=== PATIENT | male | born 1975 | race Caucasian/White ===

== ENCOUNTER 2016-06-18 07:43 | Inpatient (IN) ==
[2016-06-18] MEDS ORDERED: ASPIRIN PO STA (08:02)
[2016-06-18] MEDS ORDERED: CARDIZEM 100 MG/NS 100 MG/100 ML IVPB IV SCH (08:07)
[2016-06-18] MEDS ORDERED: CARDIZEM IV ONE ×2 (08:07→08:55)
[2016-06-18] MEDS ORDERED: CARDIZEM ONE (08:09)
[2016-06-18 08:13] LABS: MANUAL DIFF NEEDED? NO
[2016-06-18 08:14] LABS: BASO% 0.5 % (0.0-0.8); EOS# 0.06 X1000 (0.0-0.7); EOS% 0.6 % (0.0-10.0); HEMATOCRIT 41.7 % (42.0-52.0); HEMOGLOBIN 13.7 g/dL (14.0-18.0); IMM GRAN# 0.02 X1000 (0.0-0.04); IMM GRAN% 0.2 % (0.0-0.5); LYMPH# 1.99 X1000 (1.2-3.4); LYMPH% 21.1 % (20.5-51.1); MCH 31.1 PG (27-31); MCHC 32.9 g/dL (33-37); MCV 94.6 FL (81-99); MONO# 0.97 X1000 (0.11-0.59); MONO% 10.3 % (1.7-9.3); MPV 11.3 FL (7.4-10.4); NEUT% 67.3 % (42.2-75.2); PLT 154 X1000 (130-400); RBC 4.41 XMIL (4.7-6.1)
[2016-06-18] MEDS ORDERED: NS 1,000 ML ONE (08:24)
[2016-06-18] MEDS ORDERED: LASIX IV ONE ×2 (08:27→17:21)
[2016-06-18 08:40] LABS: AGAP 12; ALKALINE PHOSPHATASE 56 U/L (32-122); BUN 16 mg/dL (8-22); CALCIUM 8.7 mg/dL (8.8-10.2); CHLORIDE 99 mmol/L (98-107); COSMO 269; GOT 54 U/L (10-34); GPT 74 U/L (10-44); MAGNESIUM 2.2 mg/dL (1.5-2.7); SODIUM 134 mmol/L (136-145); TCO2 23 mmol/L (25-35)
[2016-06-18 08:44] LABS: CK PROFILE 206 U/L (24-204)
--- NOTE | 2016-06-18 08:46 | Diag Imaging Result Document ---
PROCEDURE NAME: CHEST-PORTABLE - 06/18/2016 PORTABLE CHEST: COMPARISON: 09/01/2015. FINDINGS: The lungs are well expanded. There are increased interstitial markings bilaterally consistent with pulmonary edema. The heart is mildly prominent. No pleural effusions identified. No consolidation. IMPRESSION: Pulmonary edema with a mildly prominent heart.
--- NOTE | 2016-06-18 08:59 | EKG Report ---
Test Performed on : 06/18/2016 07:58:49 AM Test Reason : CHEST PAIN Blood Pressure : / mmHG Vent. Rate : 162 BPM Atrial Rate : 182 BPM P-R Int : 000 ms QRS Dur : 080 ms QT Int : 314 ms P-R-T Axes : 000 086 076 degrees QTc Int : 515 ms Atrial fibrillation. with rapid ventricular response. with premature ventricular or aberrantly condu cted complexes. Abnormal ECG When compared with ECG of 12-SEP-2012 07:56, Vent. rate has increased BY 99 BPM QRS axis shifted right ST no longer depressed in Anterolateral leads T wave inversion no longer evident in Anterolateral leads Unconfirmed Result
[2016-06-18 09:02] LABS: BE 1.6 mmoll (-3.0-3.0); BLOOD TYPE ARTERIAL; DRAW SITE R RADIAL; O2(CT) 18.1 mL/dL (15.0-23.0); PCO2(98.6) 39 mmHg (35-45); PO2(98.6) 69 mmHg (60-100); SAMPLE BLOOD; pH(98.6) 7.43 (7.35-7.45)
[2016-06-18 09:04] LABS: ALLEN TEST YES; MODALITY CANNULA
[2016-06-18 09:11] LABS: INR 1.05 (0.86-1.15)
[2016-06-18 09:12] LABS: PTT PL 29.5 Seconds (22.6-43.9)
[2016-06-18] MEDS ORDERED: NARCAN IV ONE (09:41)
[2016-06-18] MEDS ORDERED: NARCAN ONE (09:42)
[2016-06-18 09:59] LABS: BE 1.2 mmoll (-3.0-3.0); BLOOD TYPE ARTERIAL; DRAW SITE R BRACHIAL; METHB 1.4 % (0.0-1.5); O2(CT) 18.5 mL/dL (15.0-23.0); PCO2(98.6) 41 mmHg (35-45); PO2(98.6) 75 mmHg (60-100); SAMPLE BLOOD; SAO2 96.8 % (95.0-100.0); THB 14.2 g/dL (11.5-17.4); pH(98.6) 7.41 (7.35-7.45)
[2016-06-18 10:01] LABS: MODALITY BI PAP
[2016-06-18 10:02] LABS: ALLEN TEST NO
[2016-06-18 10:20] LABS: UR AMPHETAMINES QUAL NONE DETECTED (NONE DETECT); UR BARBITUATES QUAL NONE DETECTED (NONE DETECT); UR BENZODIAZEPIN QUAL NONE DETECTED (NONE DETECT); UR CANNABINOIDS QUAL NONE DETECTED (NONE DETECT); UR COCAINE QUAL NONE DETECTED (NONE DETECT); UR MDMA QUAL NONE DETECTED (NONE DETECT); UR METHADONE QUAL NONE DETECTED (NONE DETECT); UR METHAMPHETAMINE QUAL NONE DETECTED (NONE DETECT); UR OPIATES QUAL NONE DETECTED (NONE DETECT); UR OXYCODONE QUAL NONE DETECTED (NONE DETECT); UR PCP QUAL NONE DETECTED (NONE DETECT); UR TCA QUAL NONE DETECTED (NONE DETECT)
--- NOTE | 2016-06-18 10:30 | ED EKG INTERP ---
This chart was entered by Luis M Lemons Scribe, acting as scribe for Madai Amaya MD. EKG Interpretation - EKG Time of EKG reading by physician:: 08:00 EKG Read and Signed by:: Madai Amaya EKG Interpretation (*Must complete 3 of following elements*): Abnormal Rate: 162 Rhythm: atrial fibrillation with rapid ventricular response Delton: normal ST Wave: normal This chart was documented by the indicated scribe, (Luis M Lemons Scribe) and accurately reflects the services I performed and decisions made by Monique joshua Tom-Meka M., MD, as attested by the provider's signature.
--- NOTE | 2016-06-18 10:32 | PROVIDER DOCUMENTATION ---
This chart was entered by Luis M Lemons Scribe, acting as scribe for Madai Amaya MD. HPI-Critical Care - General Chief Complaint: Shortness of Breath Stated Complaint: SOB Time Seen by Provider: 06/18/16 08:02 Patient arrived via EMS?: No Source: patient Allergies/Adverse Reactions: Allergies Allergy/AdvReac Type Severity Reaction Status Date / Time Iodinated Contrast Media - Allergy Unknown Unknown Verified 06/18/16 08:03 Oral and Home Medications: Home Medication List Medication Instructions Recorded Confirmed Last Taken Type Valsartan 320 mg PO DAILY 01/16/15 01/16/15 01/16/15 History Aspirin 81 mg PO DAILY #50 chewtab 01/17/15 Unknown Rx Metoprolol Succinate E.r. [Toprol 25 mg PO DAILY #30 tablet 01/17/15 Unknown Rx Xl] Pantoprazole [Protonix] 40 mg PO DAILY@0700 #30 tablet 01/17/15 Unknown Rx - History of Present Illness-Critical Care Nature of Presenting Problem: 40 y/o M presents to the ED c/o shortness of breath. onset x3 days. some heart racing sensation. denies chest pain. patient has had cardiac stents placed in the past. patient has not been taking his daily medications as he should. daily smoker. mild/moderate distress on arrival. denies all other symptoms. no other voiced complaints. Location of Pain/Injury: reports: none Quality of Pain: reports: none Severity in ED: reports: moderate Onset/Duration: reports: 3 days ago Timing: reports: still present Associated Symptoms: reports: shortness of breath, other (palpitations) Loss of Consciousness: no loss of consciousness Improves Condition (Modifying Factors): improves with: nothing Nitro Today/Relief: no nitro taken today Aspirin Treatment Today: no aspirin today Prior Chest Pain/Cardiac Workup: reports: cardiac cath, echocardiography, stress test Similar Symptoms Previously?: No Recently Seen Here or By Another Healthcare Provider: No Review of Systems - Adult - REVIEW OF SYSTEMS - ADULT Constitutional: denies: chills, fever Eyes: denies: blurred vision, double vision Ears, Nose, Mouth & Throat: denies: sinus problem, mouth/dental pain Cardiovascular: reports: palpitations. denies: chest pain Respiratory: reports: shortness of breath. denies: cough, wheezing Gastrointestinal: denies: diarrhea, nausea, vomiting Genitourinary: denies: dysuria, frequency Musculoskeletal: denies: bone pain, back pain Integumentary: denies: itching, rash Neurological: denies: dizziness/vertigo, headache/migraines Psychiatric: reports: no symptoms reported Endocrine: reports: no symptoms reported Hematologic/Lymphatic: reports: no symptoms reported Allergic/Immunologic: reports: no symptoms reported Past History - Adult - PAST MEDICAL HISTORY-ADULT Review of Records: reports: Nursing Assessment Review, Medications Reviewed Major Childhood Illnesses: reports: denies history Cardiovascular: reports: HTN Respiratory: reports: denies history Gastrointestinal: reports: denies history Obstetrical/Gynecological: reports: denies history Genitourinary: reports: denies history Musculoskeletal: reports: denies history Neurological: reports: denies history Psychiatric: reports: denies history Endocrine/Immune: reports: denies history Other Conditions: reports: denies history - PRIOR SURGERIES/PROCEDURES Surgical/Procedure History: reports: cardiac stent - IMMUNIZATION STATUS Childhood Immunizations: See Nurse Assessment Flu Vaccine: See Nurse Assessment - SOCIAL HISTORY Smoking: cigarettes, greater than 1 pack/day Alcohol Use Frequency: occasionally Physical Exam-General - PHYSICAL EXAM-ADULT Initial Vital Signs Reviewed: Yes - CONSTITUTIONAL General Appearance: alert, mild distress, slow to respond (appropriate) - EYES Eyes: PERRL/EOMI, pink conjunctivae - HEAD, EARS, NOSE, MOUTH & THROAT HENMT: moist mucous membranes, normal ENT inspection - NECK Neck: full range of motion, normal inspection - RESPIRATORY Respiratory: respiratory distress (mild/moderate), rales (at bases) - CARDIOVASCULAR Cardiovascular: tachycardia, irregularly irregular - GASTROINTESTINAL (ABDOMEN) Abdominal Exam: normal bowel sounds, non tender, soft - MUSCULOSKELETAL Extremity: normal range of motion, normal capillary refill - SKIN Integumentary: warm/dry, other (flush) - NEUROLOGIC Neurologic: lens polisher hand II-XII nml as tested, no motor/sensory deficits - PSYCHIATRIC Psych/Mental Status: normal mood/affect, normal thought content, normal thought process, oriented x 3 Progress - PLAN OF CARE/RESULTS Progress/Plan/Lab Results: Vital Signs - 8 hr 06/18/16 07:57 06/18/16 08:24 06/18/16 08:30 Temperature 98.4 F Pulse Rate 157 H 169 H 139 H Respiratory Rate 18 24 19 Blood Pressure 154/122 119/91 120/99 O2 Sat by Pulse Oximetry 96 98 94 L 06/18/16 08:39 06/18/16 08:46 06/18/16 09:00 Temperature Pulse Rate 171 H 173 H 162 H Respiratory Rate 15 17 21 Blood Pressure 118/85 115/97 129/89 O2 Sat by Pulse Oximetry 95 96 93 L Laboratory Results - last 24 hr 06/18/16 06/18/16 06/18/16 04:45 08:00 08:00 WBC RBC Hgb Hct MCV MCH MCHC RDW Std Deviation Plt Count MPV Immature Gran % (Auto) Neut % (Auto) Lymph % (Auto) [place] % (Auto) Eos % (Auto) Baso % (Auto) Immature Gran # (Auto) Neut # (Auto) Lymph # (Auto) [place] # (Auto) Eos # (Auto) Baso # (Auto) PT INR APTT (Factor Assay) D-Dimer Specimen Type Sample Site pH pCO2 pO2 HCO3 Base Excess Oxyhemoglobin ABG O2 Sat (Calculated) ABG O2 Saturation ABG Carboxyhemoglobin ABG Methemoglobin Thomas Test A-a O2 Difference Total Hemoglobin Lactate Liter Flow Blood Gas Modality FiO2 % Inspiratory BiPAP Expiratory BiPAP Sodium 134 L Potassium 4.0 Chloride 99 Carbon Dioxide 23 L Anion Gap 12 BUN 16 Creatinine 0.8 Estimated GFR/1.73 m2 > 60 BUN/Creatinine Ratio 20 Glucose 99 Calculated Osmolality 269 Calcium 8.7 L Magnesium 2.2 Total Bilirubin 1.20 H AST 54 H ALT 74 H Alkaline Phosphatase 56 Creatine Kinase 206 H Troponin T < 0.010 Vbe-[id number]-[id number] Pept Total Protein 8.0 Albumin 4.0 Globulin 4.0 Albumin/Globulin Ratio 1.0 Urine Opiates Screen NONE DETECTED Ur Oxycodone Screen NONE DETECTED Urine Methadone Screen NONE DETECTED Ur Barbituates Screen NONE DETECTED Ur Tricyclics Screen NONE DETECTED Ur Phencyclidine Scrn NONE DETECTED Ur Amphetamines Screen NONE DETECTED U Methamphetamines Scrn NONE DETECTED Urine MDMA Screen NONE DETECTED U Benzodiazepines Scrn NONE DETECTED Urine Cocaine Screen NONE DETECTED U Cannabinoids Screen NONE DETECTED 06/18/16 06/18/16 06/18/16 08:00 08:00 08:00 WBC 9.45 RBC 4.41 L Hgb 13.7 L Hct 41.7 L MCV 94.6 MCH 31.1 H MCHC 32.9 L RDW Std Deviation 15.3 H Plt Count 154 MPV 11.3 H Immature Gran % (Auto) 0.2 Neut % (Auto) 67.3 Lymph % (Auto) 21.1 [place] % (Auto) 10.3 H Eos % (Auto) 0.6 Baso % (Auto) 0.5 Immature Gran # (Auto) 0.02 Neut # (Auto) 6.36 Lymph # (Auto) 1.99 [place] # (Auto) 0.97 H Eos # (Auto) 0.06 Baso # (Auto) 0.05 PT 14.0 INR 1.05 APTT (Factor Assay) 29.5 D-Dimer 0.45 Specimen Type Sample Site pH pCO2 pO2 HCO3 Base Excess Oxyhemoglobin ABG O2 Sat (Calculated) ABG O2 Saturation ABG Carboxyhemoglobin ABG Methemoglobin Thomas Test A-a O2 Difference Total Hemoglobin Lactate Liter Flow Blood Gas Modality FiO2 % Inspiratory BiPAP Expiratory BiPAP Sodium Potassium Chloride Carbon Dioxide Anion Gap BUN Creatinine Estimated GFR/1.73 m2 BUN/Creatinine Ratio Glucose Calculated Osmolality Calcium Magnesium Total Bilirubin AST ALT Alkaline Phosphatase Creatine Kinase Troponin T [id number]-Nitfjhzeuea Pept 1979 H Total Protein Albumin Globulin Albumin/Globulin Ratio Urine Opiates Screen Ur Oxycodone Screen Urine Methadone Screen Ur Barbituates Screen Ur Tricyclics Screen Ur Phencyclidine Scrn Ur Amphetamines Screen U Methamphetamines Scrn Urine MDMA Screen U Benzodiazepines Scrn Urine Cocaine Screen U Cannabinoids Screen 06/18/16 06/18/16 08:45 09:40 WBC RBC Hgb Hct MCV MCH MCHC RDW Std Deviation Plt Count MPV Immature Gran % (Auto) Neut % (Auto) Lymph % (Auto) [place] % (Auto) Eos % (Auto) Baso % (Auto) Immature Gran # (Auto) Neut # (Auto) Lymph # (Auto) [place] # (Auto) Eos # (Auto) Baso # (Auto) PT INR APTT (Factor Assay) D-Dimer Specimen Type ARTERIAL ARTERIAL Sample Site R RADIAL R BRACHIAL pH 7.43 7.41 pCO2 39 41 pO2 69 75 HCO3 26.0 25.7 Base Excess 1.6 1.2 Oxyhemoglobin 92.0 L 92.4 L ABG O2 Sat (Calculated) 18.1 18.5 ABG O2 Saturation 96.0 96.8 ABG Carboxyhemoglobin 3.20 H 3.10 H ABG Methemoglobin 1.0 1.4 Thomas Test YES NO A-a O2 Difference 139.0 159.0 Total Hemoglobin 14.0 14.2 Lactate 0.50 0.60 Liter Flow 4.0 Blood Gas Modality CANNULA BI PAP FiO2 % 36.0 40.0 Inspiratory BiPAP 10.0 Expiratory BiPAP 5.0 Sodium Potassium Chloride Carbon Dioxide Anion Gap BUN Creatinine Estimated GFR/1.73 m2 BUN/Creatinine Ratio Glucose Calculated Osmolality Calcium Magnesium Total Bilirubin AST ALT Alkaline Phosphatase Creatine Kinase Troponin T [id number]-Xzbuaxgrzxn Pept Total Protein Albumin Globulin Albumin/Globulin Ratio Urine Opiates Screen Ur Oxycodone Screen Urine Methadone Screen Ur Barbituates Screen Ur Tricyclics Screen Ur Phencyclidine Scrn Ur Amphetamines Screen U Methamphetamines Scrn Urine MDMA Screen U Benzodiazepines Scrn Urine Cocaine Screen U Cannabinoids Screen Orders Category Date Time Status Cardiac Monitoring DIRECTED Care 06/18/16 08:02 Active [place] Cath Insertion ORDERED Care 06/18/16 09:41 Active Saline Loc NOW Care 06/18/16 08:02 Active CHEST-PORTABLE [RAD] Stat Exams 06/18/16 08:08 Draft ABG [RESP] Routine Lab 06/18/16 08:45 Completed ABG [RESP] Routine Lab 06/18/16 09:40 Completed CBC WITH ELECTRONIC DIFF [HEME] Stat Lab 06/18/16 08:00 Completed CK PROFILE [SP CHEM] Stat Lab 06/18/16 08:00 Results COMPREHENSIVE METABOLIC PANEL [CHEM] Stat Lab 06/18/16 08:00 Results D-DIMER PL [COAG] Stat Lab 06/18/16 08:00 Completed MAGNESIUM [CHEM] Stat Lab 06/18/16 08:00 Results PRO B-NATRIURETIC PEPTIDE Stat Lab 06/18/16 08:00 Completed [address]IME WITH INR PL [COAG] Stat Lab 06/18/16 08:[address] [COAG] Stat Lab 06/18/16 08:00 Completed TROPONIN T Stat Lab 06/18/16 08:00 Completed UDS [URINE DRUG SCREEN PL] Stat Lab 06/18/16 04:45 Completed 0.9% Sodium Chloride Inj [Ns] 1,000 ml Med 06/18/16 08:24 Discontinued .ROUTE As Directed Aspirin Med 06/18/16 08:02 Discontinued 325 mg PO STAT STA Diltiazem 100 mg/Ns [Cardizem 100 mg/Ns] Med 06/18/16 08:07 Active 100 mg in 100 ml IV 5 mg/hr Diltiazem [Cardizem] Med 06/18/16 08:07 Discontinued 10 mg IV NOW ONE Diltiazem [Cardizem] Med 06/18/16 08:55 Discontinued 10 mg IV NOW ONE Diltiazem [Cardizem] Med 06/18/16 08:09 Discontinued 25 mg .ROUTE .STK-MED ONE Furosemide [Lasix] Med 06/18/16 08:27 Discontinued 20 mg IV NOW ONE Naloxone [Narcan] Med 06/18/16 09:42 Discontinued 2 mg .ROUTE .STK-MED ONE Naloxone [Narcan] Med 06/18/16 09:41 Discontinued 2 mg IV NOW ONE BIPAP Stat Oth 06/18/16 08:50 Active EKG [EKG] Stat Ther 06/18/16 08:02 Draft plan of care: cardiac evaluation, manage atrial fibrillation, placed on cardizem drip, b/p tolerating 0930-- Dr Phu conklin for possible admission/transfer. 1000-- Dr Phu conklin Result Diagrams: 06/18/16 08:00 06/18/16 08:00 - XRAY 1 XRAY Study: Chest Impression: Normal XRAY Interpretation: pulmonary edema; o/w normal - CONSULTS/PCP/HOSPITALIST Notification #1 *Consult/PCP/Hospitalist*: Dr Bay Time Discussed: 10:24 Reason/Comments: Discussed admission. Wants patient placed upstairs in ICU Consult Disposition: Will see in ED, Admit Departure - Departure Time of Disposition Decision: 10:30 DIAGNOSIS: Atrial fibrillation with rapid ventricular response, Respiratory distress Disposition: ADMITTED INPATIENT 09 Certified Medical Emergency: Emergent Condition: Stable Referrals and Follow-Ups: None,PCP [Primary Care Provider] - - Critical Care Note Total Time (mins): 75 Critical Care Statement: This patient required my direct personal management to treat or rule out processes, the absence of which, could potentiallly result in sudden, clinically significant life or limb threatening deterioration. This chart was documented by the indicated scribe, (Luis M Lemons Scribe) and accurately reflects the services I performed and decisions made by me, Madai Amaya MD, as attested by the provider's signature.
[2016-06-18 10:51] LABS: CK INDEX 0.9 (0.0-2.5); CK-MB 1.83 ng/mL (0.0-5.0)
[2016-06-18] MEDS ORDERED: LOPRESSOR PO ONE (13:26)
[2016-06-18] MEDS ORDERED: ZOFRAN IV PRN (13:26)
[2016-06-18] MEDS ORDERED: TYLENOL PO PRN (13:26)
[2016-06-18] MEDS ORDERED: NORCO-7.5 PO PRN (13:26)
[2016-06-18] MEDS ORDERED: LOVENOX SUBQ SCH (13:30)
[2016-06-18] MEDS: CARDIZEM 100 MG/NS 100 MG/100 ML IVPB IV SCH ×3 (15:20→23:22)
[2016-06-18] MEDS: NS 1,000 ML IV SCH ×2 (15:21→23:20)
[2016-06-18] MEDS ORDERED: LASIX ONE (17:23)
--- NOTE | 2016-06-18 17:35 | HISTORY AND PHYSICAL ---
INSTRUCTIONAL RESOURCE TEACHER: Kenny Lobato MD. CHIEF COMPLAINT: Shortness of breath and dyspnea on exertion for the past 3 weeks. HISTORY OF PRESENT ILLNESS: The patient is a 40-year-old, white male, morbidly obese, with hypertension, coronary artery disease and history of atrial fibrillation. The patient was admitted to the hospital for progressive weakness and dyspnea on exertion for about 3 weeks coinciding with the time that he stopped taking his metoprolol for rate control. He continued to still feel some palpitations and mild chest discomfort. He denied having any fever or chills. He denied having any recent sick contact. The patient does report having significant dyspnea and has had difficulty carrying out his chores. The shortness of breath has been worse. The patient presented today and was found to have a heart rate in the 130s-170s, atrial fibrillation with rapid ventricular response. At the same time the patient has been complaining of having severe shortness of breath. He does smoke and continues to smoke. He denies having any fever or chills. He denies having any abdominal pain. He denies having any dysuria or polyuria. He denies using any illicit drugs. PAST MEDICAL HISTORY: 1. GERD. 2. Morbid obesity. 3. Tobacco abuse. 4. Alcohol abuse. 5. History of atrial fibrillation. 6. Hypertension. 7. History of coronary artery disease status post stent placement. PAST SURGICAL HISTORY: He denies having any past surgical history. ALLERGIES: No known drug allergies. 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 He does smoke. He drinks mostly on the weekend a half-case at a time. FAMILY HISTORY: Positive for coronary artery disease. HOME MEDICATIONS: The patient has not been taking any of his medications for the past 3 weeks. He was supposed to be on aspirin, Plavix, metoprolol, Protonix valsartan. REVIEW OF SYSTEMS: Twelve systems were reviewed and were negative except for what is mentioned in HPI. PHYSICAL EXAMINATION: VITAL SIGNS: Blood pressure ranging from 118-129/85-99, pulse ranging from 140-160. GENERAL APPEARANCE: Morbidly obese, white male, in moderate distress. HEENT: Anicteric. Clear conjunctivae. NECK: Supple. No JVD. No bruits. CARDIOVASCULAR: S1, S2. Normal rate and rhythm. No murmur, rubs, or gallops. The patient has but tachycardic with irregular rate and rhythm. No murmur, rubs, or gallops. PULMONARY: Clear to auscultation bilaterally. GASTROINTESTINAL: Soft, nontender, nondistended, normoactive bowel sounds. MUSCULOSKELETAL: No clubbing, cyanosis, or edema. LABORATORY: White count 9.45, hemoglobin 13.7, hematocrit 41.7, platelets 154,000. Chemistry: Sodium 134, potassium 4.0, chloride 99, bicarbonate 23, BUN 16, creatinine 0.8, glucose 99, AST 54, ALT 74, BNP 1979. Chest x-ray: Pulmonary edema pictures with a mildly prominent heart size. Troponin 1st set is negative. ASSESSMENT/PLAN: A 40-year-old, white male with history of atrial fibrillation, coronary artery disease, hypertension who presented with dyspnea on exertion and was found to have atrial fibrillation with rapid ventricular response. 1. Atrial fibrillation with rapid ventricular response. He has a longstanding history of atrial fibrillation and was on Lopressor at home for rate control. He decided to quit his medications for whatever reason and started feeling bad shortly afterwards. He was found to have a heart rate in the 130s-170s, atrial fibrillation with rapid ventricular response. For thyroid function the ER physician started the patient on diltiazem drip not optimally controlled. We will continue to titrate medications. We will put the patient in the ICU for closer monitoring. At the same time put him back on his Lopressor. When his rate is under control, we will get an echocardiogram. We will consult Cardiology. We will trend his troponins. It is not unusual if his troponins bump seeing his rate has been running so fast. We will also put the patient on full anticoagulation for now unless Cardiology says otherwise. 2. Hypertension. Again we will keep the patient on diltiazem drip for now. 3. Questionable congestive heart failure. We will get an echocardiogram. Chest x-ray shows congestive heart failure pictures. 4. Gastroesophageal reflux disease. We will resume his Protonix. 5. Deep vein thrombosis prophylaxis. We will put the patient on full dose Lovenox. CODE STATUS: The patient is a full code.
[2016-06-18] MEDS: LOVENOX SUBQ SCH (20:37)
[2016-06-18] MEDS: LASIX IV SCH (20:37)
--- NOTE | 2016-06-18 22:26 | ECHO REPORT ---
ORDER DATE: 06/18/2016 INTERPRETING PHYSICIAN: Dr. Avilez REQUESTING PHYSICIAN: CLINICAL INDICATIONS: A 40-year-old male with atrial fibrillation, history of coronary heart disease. M-MODE MEASUREMENTS: Right ventricle: 3.1 cm. Left ventricle end diastole: 5.5 cm. Left ventricle end systole: 3.2 cm. Posterior wall: 1.1 cm. Interventricular septum: 1.1 cm. Left atrium: 5.2 cm. Aortic root: 3.2 cm. SUMMARY OF 2-DIMENSIONAL IMAGING: This study is technically very limited because the patient is in atrial fibrillation and, in addition, the patient is obese and has poor acoustic windows. The left ventricular function appears to be moderately impaired, somewhere in the range of 38-45%. Again, wall motion abnormality and global function are difficult to assess because of the combination of rapid atrial fibrillation and poor acoustic windows. The right ventricle appears to be moderately enlarged. The atria, especially the right, appear to be mildly enlarged. The left atrium is probably mild to moderately enlarged. The inferior vena cava is enlarged at 2.4 cm. The tricuspid valve shows a mild to moderate degree of regurgitation. Pulmonary pressure is estimated at 52-57 mmHg. The pulmonic valve appears to be grossly normal. The aortic valve appears to be grossly normal. Color flow mapping of the aortic valve is unremarkable. The mitral valve shows a single filling wave. There is no evidence of any significant degree of mitral regurgitation. There is no pericardial effusion. There is no evidence of masses or thrombus. Clinical correlation recommended. cc: Clark Avilez MD
--- NOTE | 2016-06-18 23:40 | CONSULTATION ---
DATE OF CONSULTATION: 06/18/2016 IMPRESSION: 1. Atrial fibrillation with rapid ventricular rate with history of paroxysmal fibrillation. 2. Acute congestive heart failure, probably diastolic in nature. 3. Longstanding hypertension. 4. Atherosclerotic coronary disease with history of previous coronary angioplasty/stenting, June 10, 2015, with Drug-eluting stent to mid left anterior descending coronary, and drug-eluting stent to the proximal to mid right dominant right coronary. Left ventricle ejection fraction at that time 55 to -60%. 5. Chronic cigarette use, ongoing. 6. Hyperlipidemia. 7. Recent medical noncompliance. RECOMMENDATIONS: 1. Diurese with intravenous Lasix. 2. Control heart rate acutely with intravenous Cardizem. 3. Serial cardiac enzymes. 4. Start Lovenox 1 mg/kg subcutaneously q.12. 5. Suspect obstructive sleep apnea, very likely. Would use Bi-PAP at night, and arrange for outpatient sleep study. 6. Echocardiography, once heart rate is better controlled. 7. Patient counseled regarding need for smoking cessation, and compliance with medical regimen. 8. Further recommendations to follow depending on patient's clinical course. HISTORY: This 40-year-old, white male, with past history of hypertension, atherosclerotic coronary disease, hyperlipidemia, previous atrial fibrillation, and obesity, was admitted to emergency room after presenting with progressive shortness of breath and weakness. He was found to be in atrial fibrillation with rapid ventricle rate. He was started on intravenous Cardizem, and admitted to the CCU. He was also given Lasix 20 mg intravenously. He relates not taking some of his cardiovascular medications recently, as he felt that were making him feel weak. He actually describes feeling weak, and also dropping off sleep quite readily during the day. There is history of prominent snoring. He does not limit his salt intake at all. Over the last 3 days, he started having progressive dyspnea. There has been some cough, which has been nonproductive. He equivocates as to whether he had orthopnea. There has been no angina. He is not aware of any palpitations even at present when he is in atrial fibrillation. PAST MEDICAL HISTORY: 1. Atherosclerotic coronary disease, as outlined above. 2. Hypertension. 3. Hyperlipidemia. 4. Previous atrial fibrillation, paroxysmal atrial fibrillation. 5. Obesity. 6. Probable obstructive sleep apnea. 7. Gastroesophageal reflux disease. 8. Chronic cigarette use. MEDICATIONS PRIOR TO ADMISSION: As listed. ALLERGIES: He is allergic or intolerant to intravenous contrast dye. SOCIAL HISTORY: He is . 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 He smokes a pack of cigarettes per day, but has recently tried to cut back down to less than a half- pack a day. He drinks occasional beer on the weekends. FAMILY HISTORY: Positive for coronary disease. REVIEW OF SYSTEMS: Pulmonary: Noteworthy for dyspnea and nonproductive cough. Gastrointestinal: Negative. Constitutional: Noteworthy for weakness/fatigue, as well as, prominent daytime somnolence. Remainder of review of systems negative/noncontributory with 14 total systems reviewed. PHYSICAL EXAM: General: Reveals an obese adult male, on supplemental oxygen per mask, who is in mild respiratory discomfort. Patient demonstrates some mild diaphoresis. Vital Signs: As recorded, noteworthy for heart rate of 110 to 120 beats per minute, with ECG monitor showing atrial fibrillation. Blood pressure stable. HEENT: Extraocular movements intact. Mucous membranes are moist. Neck: Supple. Jugular venous distention is difficult to appreciate, but it appears he has elevated central venous pressure. Chest: Auscultation of the chest reveals bibasilar inspiratory crackles. There are no wheezes. Cardiac: Irregular tachycardia without appreciable murmur or gallop. Abdomen: Soft, nontender. Extremities: Warm and without edema. Neurologic: Reveals him to be alert and fully oriented. Speech is fluent. He moves all 4 extremities equally well. Skin: Warm and dry. Psychiatric: Reveals his mood to be appropriate. IMAGING: ECG demonstrates atrial fibrillation with rapid ventricular rate. Chest x-ray (portable) interpreted showing increased interstitial markings suggesting pulmonary edema. cc: Santhosh Cano MD
[2016-06-19] MEDS: NS 1,000 ML IV SCH ×3 (03:40→16:18)
[2016-06-19] MEDS: CARDIZEM 100 MG/NS 100 MG/100 ML IVPB IV SCH ×2 (04:48→13:31)
[2016-06-19 05:48] LABS: MANUAL DIFF NEEDED? NO
[2016-06-19 05:55] LABS: BASO% 0.4 % (0.0-0.8); EOS# 0.08 X1000 (0.0-0.7); EOS% 0.9 % (0.0-10.0); HEMATOCRIT 39.8 % (42.0-52.0); HEMOGLOBIN 12.8 g/dL (14.0-18.0); IMM GRAN# 0.02 X1000 (0.0-0.04); IMM GRAN% 0.2 % (0.0-0.5); LYMPH# 2.05 X1000 (1.2-3.4); LYMPH% 22.2 % (20.5-51.1); MCH 30.9 PG (27-31); MCHC 32.2 g/dL (33-37); MCV 96.1 FL (81-99); MONO# 1.05 X1000 (0.11-0.59); MONO% 11.4 % (1.7-9.3); MPV 11.6 FL (7.4-10.4); NEUT% 64.9 % (42.2-75.2); PLT 168 X1000 (130-400); RBC 4.14 XMIL (4.7-6.1)
[2016-06-19 06:11] LABS: AGAP 13; BUN 20 mg/dL (8-22); CALCIUM 8.3 mg/dL (8.8-10.2); CHLORIDE 97 mmol/L (98-107); COSMO 270; SODIUM 134 mmol/L (136-145); TCO2 24 mmol/L (25-35)
[2016-06-19] MEDS: PROTONIX PO SCH (06:14)
[2016-06-19] MEDS ORDERED: LOPRESSOR PO ONE (09:24)
[2016-06-19] MEDS ORDERED: PLAVIX ONE (09:50)
[2016-06-19] MEDS: LOVENOX SUBQ SCH ×2 (09:58→20:17)
[2016-06-19] MEDS: ASPIRIN PO SCH (09:58)
[2016-06-19] MEDS: LOPRESSOR ONE ×2 (09:58→13:32)
[2016-06-19] MEDS: LASIX IV SCH ×2 (09:59→20:17)
[2016-06-19] MEDS: SOLU-MEDROL IV SCH ×2 (10:16→18:41)
--- NOTE | 2016-06-19 11:36 | PROGRESS NOTE ---
DATE: 06/19/2016 SUBJECTIVE: The patient is feeling better today. Still having a little cough and shortness of breath. He denies having any fever or chills. Denies having any nausea, vomiting, or diarrhea. OBJECTIVE: Vital Signs: Blood pressure is 129/92, pulse of 100, respirations 26, temperature 98.0 degrees, and saturation of 96% on Ventimask. General Appearance: Obese white male in mild distress. HEENT: Anicteric sclerae. Clear conjunctivae. Neck: Supple. No JVD. No bruit. Cardiovascular: Normal S1 and S2. Normal rate and rhythm. No murmur, rubs, or gallops. Pulmonary: Wheezes bilaterally. Gastrointestinal: Soft, nontender, nondistended. Normoactive bowel sounds. Musculoskeletal: No clubbing, cyanosis, or edema. LABORATORY: White count 9.25, hemoglobin 12.8, hematocrit of 39.8, platelets 168,000. Chemistry: Sodium 134, potassium 4.0, chloride 97, bicarbonate 24, BUN 20, creatinine 0.7, glucose of 270. ASSESSMENT AND PLAN: This is a 40-year-old, white male, admitted to the hospital for shortness of breath and was found to have atrial fibrillation with rapid ventricular response. 1. Atrial fibrillation with rapid ventricular response. The patient has a history of atrial fibrillation and was treated with metoprolol at home. He did not take his metoprolol like he was supposed to for 3 weeks and then he started having shortness of breath and palpitations. We put the patient on diltiazem drip and restarted him back on his Lopressor. We put him back on his home dose of 100 mg of Lopressor daily and we will continue to wean off the Cardizem drip. We may have to start Cardizem p.o. on him, but for now he may do well with his home Lopressor. Echocardiogram revealed it was not a good window because of tachycardia, but apparently the patient does have heart failure. 2. Systolic heart failure acute exacerbation. We will continue Lasix and will put him back on his losartan when his blood pressure can tolerate. 3. Acute chronic obstructive pulmonary disease exacerbation. We will put the patient on low dose of steroid. 4. Hypertensions. Will put him back on his home medications, Lopressor and losartan. 5. Tobacco abuse. Counseled. 6. Alcohol abuse. Counseled. CODE STATUS: The patient is a full code.
[2016-06-19] MEDS ORDERED: CARDIZEM PO SCH (16:30)
[2016-06-19] MEDS: ALDACTONE PO SCH (16:41)
[2016-06-19] MEDS: LANOXIN PO SCH ×2 (16:41→22:01)
--- NOTE | 2016-06-19 18:08 | PROGRESS NOTE ---
DATE: 06/19/2016 CHIEF COMPLAINT: Shortness of breath, irregular heartbeat. SUBJECTIVE: Mr. Johnson states that he is breathing a little better. He is on oxygen now. They are weaning off his IV diltiazem. He denies having any chest pain. OBJECTIVE: Vital signs: Blood pressure right now is 148/94. Pulse is about 103. Respirations 20. Temperature 97.4. General: He is awake, alert and oriented. He is obese. He weighs 274 pounds. He is in no distress. HEENT: Unremarkable. Chest: Shows diffusely diminished breath sounds. Cardiac: Heart sounds are irregularly irregular. At this time, no gallop or murmur is noted. Abdomen: Obese, nontender. Extremities: Showed palpable pulses. There is trace edema in the legs. Neurologic: He moves four extremities, follows commands. LABORATORY DATA: Sodium 134, potassium 4.0, BUN 20, creatinine 0.7. Hemoglobin 12.8, hematocrit 39.8. IMPRESSION: 1. Patient presenting with atrial fibrillation, rapid response. 2. Congestive heart failure, chronic, systolic, with acute diastolic decompensation probably related to arrhythmia. 3. History of severe coronary artery disease, previous stents. 4. Morbid obesity. 5. Tobacco user. 6. Hyperlipidemia. RECOMMENDATIONS: We will add digoxin and oral Cardizem to the regimen to control his heart rate. We will put him on spironolactone to help his chronic heart failure. He probably needs to go also on an HEATH inhibitor. We will make arrangements for that. Further advice will be forthcoming. cc: Clark Avilez MD
[2016-06-19] MEDS: VASOTEC PO SCH (20:14)
[2016-06-19] MEDS: CARDIZEM PO SCH (22:01)
[2016-06-20] MEDS: NS 1,000 ML IV SCH ×4 (00:53→17:51)
[2016-06-20] MEDS: SOLU-MEDROL IV SCH ×3 (01:46→17:42)
[2016-06-20] MEDS: CARDIZEM PO SCH ×5 (04:08→21:20)
[2016-06-20] MEDS: LANOXIN PO SCH ×2 (04:08→10:45)
[2016-06-20] MEDS: CARDIZEM 100 MG/NS 100 MG/100 ML IVPB IV SCH ×2 (05:05→17:21)
[2016-06-20 05:48] LABS: HEMATOCRIT 38.9 % (42.0-52.0); HEMOGLOBIN 12.4 g/dL (14.0-18.0); IMM GRAN# 0.02 X1000 (0.0-0.04); IMM GRAN% 0.2 % (0.0-0.5); LYMPH# 0.81 X1000 (1.2-3.4); MANUAL DIFF NEEDED? YES; MCH 30.7 PG (27-31); MCHC 31.9 g/dL (33-37); MCV 96.3 FL (81-99); MONO% 2.5 % (1.7-9.3); MPV 11.2 FL (7.4-10.4); NEUT% 87.3 % (42.2-75.2); PLT 147 X1000 (130-400); RBC 4.04 XMIL (4.7-6.1)
[2016-06-20 06:02] LABS: AGAP 9; BUN 18 mg/dL (8-22); CALCIUM 8.9 mg/dL (8.8-10.2); CHLORIDE 101 mmol/L (98-107); COSMO 278; POTASSIUM 4.4 mmol/L (3.5-5.1); SODIUM 137 mmol/L (136-145); TCO2 27 mmol/L (25-35)
--- NOTE | 2016-06-20 06:03 | EKG Report ---
Test Performed on : 06/20/2016 05:34:54 AM Test Reason : a.fib rvr protocol Blood Pressure : / mmHG Vent. Rate : 115 BPM Atrial Rate : 098 BPM P-R Int : 000 ms QRS Dur : 088 ms QT Int : 358 ms P-R-T Axes : 000 070 069 degrees QTc Int : 495 ms Atrial fibrillation. with rapid ventricular response. with premature ventricular or aberrantly condu cted complexes. Abnormal ECG When compared with ECG of 18-JUN-2016 07:58, No significant change was found Confirmed by Abran Siddiqui MD ([id number]) on 06/27/2016 10:16:01 PM
[2016-06-20] MEDS: PROTONIX PO SCH (06:49)
[2016-06-20 06:51] LABS: LYMPHS 15 % (21-51); MONO 2 % (1-9)
[2016-06-20] MEDS: ALDACTONE PO SCH (08:29)
[2016-06-20] MEDS: VASOTEC PO SCH ×2 (08:29→21:09)
[2016-06-20] MEDS: TOPROL XL PO SCH (08:29)
[2016-06-20] MEDS: LASIX IV SCH ×2 (08:29→21:09)
[2016-06-20] MEDS: LOVENOX SUBQ SCH ×2 (08:30→21:10)
[2016-06-20] MEDS: ASPIRIN PO SCH (08:30)
[2016-06-20] MEDS: PLAVIX PO SCH (08:30)
--- NOTE | 2016-06-20 12:58 | PROGRESS NOTE ---
DATE: 06/20/2016 SUBJECTIVE: The patient is feeling well today. He denies any shortness of breath. His cough is better. He denies fever or chills, nausea, vomiting, or diarrhea. OBJECTIVE: Vital Signs: Blood pressure is 119/81, with a heart rate ranging from 107 to the 130s, respirations 16, temperature 98.2 degrees with oxygen saturations of 94% to 96% on 3L nasal cannula. Cardiovascular: Irregularly irregular rate and rhythm. S1 and S2 are appreciated. Pulmonary: Breath sounds are clear, with no increased work of breathing noted. Gastrointestinal: Abdomen is large, soft, nontender, nondistended, with bowel sounds in all 4 quadrants. Extremities: No clubbing, cyanosis, or edema. Calves are nontender. Pulses are palpable x4. LABORATORIES: WBC is 8.0 with a hemoglobin of 12.4, hematocrit 38.9, and platelets of 147,000. Sodium is 137, potassium 4.4, BUN 18, creatinine 0.6, with a glucose of 139. ASSESSMENT AND PLAN: This is a 40-year-old white male who presented with shortness of breath, and was found to have atrial fibrillation with rapid ventricular rapid ventricular response. 1. Atrial fibrillation with rapid ventricular response. The patient does have a history of atrial fibrillation and he has been treated with oral metoprolol. He states he stopped taking the medication about 3 weeks ago. A few days after, he developed shortness of breath and palpitations. We will continue with oral Lopressor as well as oral Cardizem and digoxin. We will continue telemetry. Will follow with Cardiology. We will continue with Lovenox 1 mg/kg b.i.d. 2. Systolic heart failure acute exacerbation, most likely related to arrhythmia. Will continue his spironolactone. 3. History of acute chronic obstructive pulmonary disease exacerbation. Continue with low-dose steroids and supplemental oxygen. 4. Hypertension. Continue his regimen. 5. History of severe coronary artery disease with previous stents. Aware. Following with Cardiology. 6. Tobacco abuse. Aware. 7. Alcohol abuse. Aware. 8. Deep vein thrombosis prophylaxis. He is on Lovenox. 9. Gastrointestinal prophylaxis. Protonix. Dictated by CRISTÓBAL Martinez for Eliud rBooks MD cc: CRISTÓBAL Martinezam, MD
[2016-06-21] MEDS: CARDIZEM 100 MG/NS 100 MG/100 ML IVPB IV SCH ×2 (00:48→13:40)
[2016-06-21] MEDS: SOLU-MEDROL IV SCH ×2 (01:28→12:59)
[2016-06-21] MEDS: NS 1,000 ML IV SCH ×4 (02:29→21:28)
[2016-06-21] MEDS: CARDIZEM PO SCH ×2 (03:53→09:19)
--- NOTE | 2016-06-21 05:42 | EKG Report ---
Test Performed on : 06/21/2016 05:08:27 AM Test Reason : a.fib rvr protocol Blood Pressure : / mmHG Vent. Rate : 092 BPM Atrial Rate : 068 BPM P-R Int : 000 ms QRS Dur : 088 ms QT Int : 412 ms P-R-T Axes : 000 059 095 degrees QTc Int : 509 ms Atrial fibrillation. with premature ventricular or aberrantly conducted complexes. Nonspecific T wave abnormality Prolonged QT Abnormal ECG When compared with ECG of 20-JUN-2016 05:34, (Unconfirmed) Inverted T waves have replaced nonspecific T wave abnormality in Anterior leads Unconfirmed Result
[2016-06-21 06:29] LABS: HEMATOCRIT 39.7 % (42.0-52.0); HEMOGLOBIN 12.6 g/dL (14.0-18.0); IMM GRAN# 0.01 X1000 (0.0-0.04); IMM GRAN% 0.1 % (0.0-0.5); LYMPH# 0.87 X1000 (1.2-3.4); LYMPH% 7.8 % (20.5-51.1); MANUAL DIFF NEEDED? YES; MCHC 31.7 g/dL (33-37); MCV 97.8 FL (81-99); MONO# 0.54 X1000 (0.11-0.59); MONO% 4.8 % (1.7-9.3); MPV 11.4 FL (7.4-10.4); NEUT% 87.3 % (42.2-75.2); PLT 166 X1000 (130-400); RBC 4.06 XMIL (4.7-6.1)
[2016-06-21 06:33] LABS: AGAP 9; BUN 19 mg/dL (8-22); CALCIUM 9.1 mg/dL (8.8-10.2); CHLORIDE 101 mmol/L (98-107); COSMO 280; SODIUM 138 mmol/L (136-145); TCO2 28 mmol/L (25-35)
[2016-06-21] MEDS: PROTONIX PO SCH (06:45)
[2016-06-21] MEDS: VASOTEC PO SCH ×2 (08:11→21:28)
[2016-06-21] MEDS: LOVENOX SUBQ SCH (08:11)
[2016-06-21] MEDS: LASIX IV SCH ×2 (08:11→21:28)
[2016-06-21] MEDS: PLAVIX PO SCH (08:12)
[2016-06-21] MEDS: ALDACTONE PO SCH (08:12)
[2016-06-21] MEDS: ASPIRIN PO SCH (08:12)
[2016-06-21] MEDS: TOPROL XL PO SCH (08:12)
[2016-06-21] MEDS ORDERED: LANOXIN PO SCH (09:00)
[2016-06-21 10:30] LABS: LYMPHS 10 % (21-51); MONO 2 % (1-9)
[2016-06-21] MEDS ORDERED: CARDIZEM 100 MG/NS 100 MG/100 ML IVPB ONE (13:36)
[2016-06-21] MEDS: CARDIZEM CD PO SCH (15:28)
--- NOTE | 2016-06-21 16:09 | PROGRESS NOTE ---
DATE: 06/21/2016 SUBJECTIVE: The patient states he feels better today. He does have shortness of breath with activity and his cough is better. He denies any chest pain, fever, chills, nausea, vomiting, or diarrhea. OBJECTIVE: Vital Signs: Blood pressure is 152/76 with a heart rate of 116, atrial fibrillation. Temperature is 98.1 degrees with oxygen saturations of 94% to 96% on 3.5L of nasal cannula. Cardiovascular: Irregularly irregular rate and rhythm. S1 and S2 are appreciated. Pulmonary: Breath sounds are clear, with no increased work of breathing noted. Gastrointestinal: Abdomen is soft, nontender, nondistended, with bowel sounds in all 4 quadrants. Extremities: No clubbing, cyanosis, or edema. Calves are nontender. Pulses are palpable x4. LABORATORIES: WBC is 11.1, with hemoglobin 12.6, hematocrit 39.7, and platelets of 166,000. Sodium is 138, potassium 4, BUN 19, creatinine 0.7, with a glucose of 133. ASSESSMENT AND PLAN: 1. Atrial fibrillation with rapid ventricular response. Cardizem drip had to be restarted earlier today. The patient was evaluated by Dr. Lobato of Cardiology. Cardizem drip has been discontinued. Will start on Cardizem 180 daily, amiodarone and Xarelto, discontinuing digoxin, Plavix, and Lovenox. The patient had previously had an appointment to see EP in [place], but he was found to have coronary artery disease. He had stents placed and, therefore, they said no intervention could be done for a year. He is about 2 weeks past that time frame, so Dr. Lobato will arrange outpatient followup with EP. 2. Systolic heart failure acute exacerbation, most likely related to arrhythmia. We will continue with diuresis. At present, he is negative about 5 L. Will continue to follow I and O. 3. History of acute obstructive pulmonary disease with exacerbation. We will continue low-dose steroids and supplemental oxygen. 4. Hypertension. We will continue his regimen. 5. History of severe coronary artery disease with previous stents. Aware. 6. Tobacco abuse. 7. Alcohol abuse. 8. History of obstructive sleep apnea. The patient has had a previous study, but never got a machine. Dr. Lobato has encouraged the patient to follow up once cardiac treatment is completed for a study. 1. Noncompliance. We did discuss with the patient the importance of taking his medications and following up with his treatment, that ultimately this could result in a stroke or even . 2. Deep vein thrombosis prophylaxis. He has previously been on Lovenox. We are starting Xarelto. 3. Gastrointestinal prophylaxis. Protonix. Dictated by CRISTÓBAL Martinez for Eliud Brooks MD cc: CRISTÓBAL Martinez MD
[2016-06-21] MEDS: XARELTO PO SCH (18:17)
[2016-06-21 19:35] LABS: URINE CULTURE PL NEEDED? NO
[2016-06-21 19:46] LABS: BILIRUBIN URINE NEGATIVE (NEGATIVE); BLOOD URINE 4+ (NEGATIVE); CLARITY CLEAR (CLEAR); COLOR YELLOW; GLUCOSE URINE NEGATIVE (NEGATIVE); LEUKOCYTES URINE NEGATIVE (NEGATIVE); NITRITE URINE NEGATIVE (NEGATIVE); PH URINE 6.5; PROTEIN URINE NEGATIVE (NEGATIVE); SP GRAVITY URINE 1.015; UROBILINOGEN URINE NORMAL
[2016-06-21 19:50] LABS: URINE CAST NONE SEEN /LPF; URINE CRYSTAL NONE SEEN /HPF; URINE EPITHELIAL CELLS <10 /HPF (<10)
[2016-06-21 19:51] LABS: URINE SOURCE CATH
[2016-06-22] MEDS: SOLU-MEDROL IV SCH ×2 (01:28→14:46)
[2016-06-22] MEDS: PROTONIX PO SCH (06:02)
--- NOTE | 2016-06-22 06:22 | Diag Imaging Result Document ---
PROCEDURE NAME: CHEST-2 VIEWS - 06/21/2016 FRONTAL AND LATERAL CHEST, TWO VIEWS: COMPARISON: 06/18/2016. FINDINGS: The lungs are well expanded. There are bilateral perihilar infiltrates. Pulmonary edema persists. The heart remains enlarged. No pleural effusions identified. IMPRESSION: 1. Persistent cardiomegaly with pulmonary edema. 2. Development of bilateral perihilar infiltrates.
[2016-06-22 06:24] LABS: AGAP 8; BUN 23 mg/dL (8-22); CHLORIDE 100 mmol/L (98-107); COSMO 282; SODIUM 139 mmol/L (136-145); TCO2 31 mmol/L (25-35)
--- NOTE | 2016-06-22 10:14 | EKG Report ---
Test Performed on : 06/22/2016 05:33:46 AM Test Reason : a.fib rvr protocol Blood Pressure : / mmHG Vent. Rate : 099 BPM Atrial Rate : 312 BPM P-R Int : 000 ms QRS Dur : 092 ms QT Int : 376 ms P-R-T Axes : 000 074 079 degrees QTc Int : 482 ms Atrial fibrillation. with premature ventricular or aberrantly conducted complexes. T wave abnormality, consider anterior ischemia Prolonged QT Abnormal ECG When compared with ECG of 21-JUN-2016 05:08, No significant change was found Confirmed by Abran Siddiqui MD ([id number]) on 06/27/2016 10:11:02 PM
[2016-06-22] MEDS: ALDACTONE PO SCH (10:30)
[2016-06-22] MEDS: CARDIZEM CD PO SCH (10:30)
[2016-06-22] MEDS: ASPIRIN PO SCH (10:31)
[2016-06-22] MEDS: LASIX IV SCH ×2 (10:31→20:59)
[2016-06-22] MEDS: CORDARONE PO SCH (10:31)
[2016-06-22] MEDS: VASOTEC PO SCH ×2 (10:31→20:59)
[2016-06-22] MEDS: NS 1,000 ML IV SCH (14:45)
--- NOTE | 2016-06-22 14:54 | PROGRESS NOTE ---
DATE: 06/22/2016 SUBJECTIVE: The patient states he feels better today. He continues with shortness of breath with activity, but he states he has no shortness of breath at rest and his cough is better. He denied chest pain, fever, or chills. OBJECTIVE: Vital Signs: Blood pressure is 136/95 with a heart rate of 96. Respirations are 18. Temperature is 98.1 degrees with oxygen saturation of 95% to 97% on 3L nasal cannula. Cardiovascular: Irregularly irregular rate and rhythm. S1 and S2 appreciated. Pulmonary: Breath sounds are clear, with no increased work of breathing noted. Gastrointestinal: Abdomen is soft, nontender, nondistended, with bowel sounds in all 4 quadrants. Extremities: No clubbing, cyanosis, or edema. Calves are nontender. Pulses are palpable x4. LABORATORIES: Sodium is 139, potassium 4, BUN 23, creatinine 0.7, with a glucose of 120. ASSESSMENT AND PLAN: 1. Atrial fibrillation, rapid ventricular response. Patient continues in atrial fibrillation with controlled rate. We will continue with his current regimen. Following with Cardiology. 2. Systolic heart failure acute exacerbation, most likely related to arrhythmia. We will continue with our current regimen. At present, he continues to be negative with his intake and output. 3. History of acute chronic obstructive pulmonary disease with exacerbation. We will continue low-dose steroids with supplemental oxygen. 4. Hypertension. Continue his regimen. 5. History of severe coronary artery disease with previous stents. Aware. 6. History of obstructive sleep apnea. Noncompliance with BiPAP. 7. Tobacco abuse. 8. Alcohol abuse. 9. Deep vein thrombosis prophylaxis. We will continue Xarelto. 10. Gastrointestinal prophylaxis. Protonix. Dictated by CRISTÓBAL Martinez for Eliud Brooks MD cc: CRISTÓBAL Martinez MD
[2016-06-22] MEDS: XARELTO PO SCH (18:18)
[2016-06-22] MEDS ORDERED: CARDIZEM PO ONE (19:17)
[2016-06-22] MEDS: FLAGYL 500 MG/NS 500 MG/100 ML IVPB IV SCH (19:36)
[2016-06-22] MEDS: ROCEPHIN 1 GM/NS 1 GM/50 ML IVPB IV SCH (19:36)
[2016-06-22] MEDS: DOXYCYCLINE 100 MG in NS 250 ML IV SCH (20:59)
[2016-06-23] MEDS: NS 1,000 ML IV SCH ×3 (01:35→20:24)
[2016-06-23] MEDS: FLAGYL 500 MG/NS 500 MG/100 ML IVPB IV SCH ×2 (01:36→08:05)
[2016-06-23] MEDS: SOLU-MEDROL IV SCH (01:36)
[2016-06-23 05:02] LABS: HEMATOCRIT 46.5 % (42.0-52.0); HEMOGLOBIN 14.7 g/dL (14.0-18.0); MCH 30.2 PG (27-31); MCHC 31.6 g/dL (33-37); MCV 95.7 FL (81-99); MPV 11.1 FL (7.4-10.4); RBC 4.86 XMIL (4.7-6.1)
[2016-06-23 05:08] LABS: AGAP 10; ALBUMIN 4.2 g/dL (3.5-5.0); ALKALINE PHOSPHATASE 47 U/L (32-122); BUN 23 mg/dL (8-22); CALCIUM 9.2 mg/dL (8.8-10.2); CHLORIDE 98 mmol/L (98-107); COSMO 283; GOT 34 U/L (10-34); GPT 65 U/L (10-44); POTASSIUM 4.2 mmol/L (3.5-5.1); SODIUM 139 mmol/L (136-145); TCO2 31 mmol/L (25-35); TOTAL PROTEIN 7.9 g/dL (6.3-8.3)
[2016-06-23] MEDS: PROTONIX PO SCH (06:03)
[2016-06-23] MEDS: CARDIZEM CD PO SCH (08:05)
[2016-06-23] MEDS: CORDARONE PO SCH (08:05)
[2016-06-23] MEDS: ALDACTONE PO SCH (08:05)
[2016-06-23] MEDS: DOXYCYCLINE 100 MG in NS 250 ML IV SCH (08:05)
[2016-06-23] MEDS: LASIX IV SCH (08:05)
[2016-06-23] MEDS: ASPIRIN PO SCH (08:05)
[2016-06-23] MEDS: VASOTEC PO SCH ×2 (08:08→20:25)
[2016-06-23] MEDS: LOPRESSOR PO SCH ×3 (09:20→20:25)
--- NOTE | 2016-06-23 09:49 | PROGRESS NOTE ---
DATE: 06/23/2016 SUBJECTIVE: Patient continues without dyspnea or chest discomfort on supplemental oxygen per nasal cannula. He is having difficulty with rate control in response to atrial fibrillation on current regimen. OBJECTIVE: Vital Signs: Blood pressure 123/50, heart rate 123 and irregular with ECG monitor showing atrial fibrillation. Neck: Jugular venous distention cannot be appreciated. Chest: Clear to auscultation bilaterally. Cardiac examination: Reveals an irregular rate and rhythm without appreciable murmur or gallop. Extremities: Without edema. LAB DATA: The lab data includes white blood cell count 9.64, BUN 23, creatinine 0.7. IMPRESSION: 1. Atrial fibrillation with rapid ventricular rate despite current therapy. 2. Acute heart failure. Echocardiography obtained during atrial fibrillation. Rapid rate and left ventricle ejection fraction may not be accurate. He appears to demonstrate some degree of prerenal azotemia and volume depletion may be helping drive up his heart rate. 3. Chronic obstructive pulmonary disease with exacerbation. 4. Obstructive sleep apnea. 5. Coronary artery disease. 6. Hypertension. 7. Chronic cigarette use. 8. Chronic alcohol use. RECOMMENDATIONS: 1. Suggest utilizing metoprolol to improve heart rate control. 2. Reduce Lasix. 3. BiPAP at night and when asleep. 4. Would focus primarily on rate control and anticoagulation in light of patient's age, comorbidities, and tendency for noncompliance. 5. Repeat echocardiography once heart rate control has been consistently achieved. cc: Santhosh Cano MD
[2016-06-23] MEDS ORDERED: DOXYCYCLINE 100 MG in NS 250 ML IV SCH (12:16)
[2016-06-23] MEDS ORDERED: FLAGYL 500 MG/NS 500 MG/100 ML IVPB IV SCH (12:16)
--- NOTE | 2016-06-23 12:35 | PROGRESS NOTE ---
DATE: 06/23/2016 SUBJECTIVE: The patient without any new complaints. Still having elevated heart rate. Cardiology is still following. PHYSICAL EXAMINATION: Temperature 97, pulse 80-154, respiratory 18, BP 92/64 to 123/52, saturation 96% on 2 L. General: The patient is awake, alert. He is currently in no real respiratory distress. Pleasant to talk with. Neck supple. CV: Irregular rate, irregular rhythm. Chest: Relatively clear. Abdomen soft, obese. Extremities: Moves all extremities. ASSESSMENT: 1. Atrial fibrillation with rapid ventricular response. Dr. Cano of Cardiology has adjusted his medications. 2. Acute heart failure. We will attempt to obtain an echo while he is more rate controlled. 3. Presumed obstructive sleep apnea given his morbid obesity. 4. Chronic obstructive pulmonary disease with mild exacerbation. 5. Known coronary artery disease. 6. Hypertension. 7. Continued chronic alcohol and chronic cigarette use. PLAN: We appreciate Dr. Cano's adjustment of his medications. We will attempt BiPAP at night. His COPD appears to be improving. Will continue doxycycline although change to p.o.. We will change Flagyl to p.o. We will continue to wean his steroids. Further orders as needed. cc: Eliud Brooks MD
[2016-06-23] MEDS: FLAGYL PO SCH ×2 (13:32→21:05)
[2016-06-23] MEDS: XARELTO PO SCH (17:21)
[2016-06-23] MEDS: ROCEPHIN 1 GM/NS 1 GM/50 ML IVPB IV SCH (20:24)
[2016-06-23] MEDS: DOXYCYCLINE PO SCH (20:25)
[2016-06-24] MEDS: SOLU-MEDROL IV SCH (01:29)
[2016-06-24] MEDS: NS 1,000 ML IV SCH ×4 (02:26→23:45)
[2016-06-24] MEDS: LOPRESSOR PO SCH ×3 (02:35→14:22)
[2016-06-24] MEDS: FLAGYL PO SCH ×3 (06:25→21:03)
[2016-06-24] MEDS: PROTONIX PO SCH (06:25)
[2016-06-24] MEDS: LASIX IV SCH (08:03)
[2016-06-24] MEDS: CARDIZEM CD PO SCH (08:04)
[2016-06-24] MEDS: ALDACTONE PO SCH (08:04)
[2016-06-24] MEDS: VASOTEC PO SCH (08:04)
[2016-06-24] MEDS: DOXYCYCLINE PO SCH ×2 (08:04→21:03)
[2016-06-24] MEDS: ASPIRIN PO SCH (08:04)
--- NOTE | 2016-06-24 11:38 | EKG Report ---
Test Performed on : 06/24/2016 10:20:00 AM Test Reason : R/0 A FLUTTER Blood Pressure : / mmHG Vent. Rate : 118 BPM Atrial Rate : 170 BPM P-R Int : 000 ms QRS Dur : 088 ms QT Int : 334 ms P-R-T Axes : 000 079 051 degrees QTc Int : 468 ms Atrial fibrillation. with rapid ventricular response. with premature ventricular or aberrantly condu cted complexes. Abnormal ECG When compared with ECG of 22-JUN-2016 05:33, (Unconfirmed) T wave inversion no longer evident in Anterior leads Confirmed by Abran Siddiqui MD ([id number]) on 06/27/2016 9:51:24 PM
--- NOTE | 2016-06-24 12:43 | PROGRESS NOTE ---
DATE: 06/24/2016 SUBJECTIVE: Patient without any complaints. States he is ready to get out of the hospital. He denies any palpitations currently but does note that off and on his heart rate increases. PHYSICAL EXAMINATION: Vital Signs: Temperature 98, 94 to 118, respiratory rate 13, BP 177/88 to 101/73, saturation 94% on 2 L. General: Patient is awake, alert. He is currently in no respiratory distress. He is pleasant to talk with. Speech is regular. Memory is intact. Neck: Supple. Cardiovascular: Tachycardia with irregular rate and irregular rhythm. His heart rate balances from 80s to 150s. Chest relatively clear although decreased secondary to body habitus. Abdomen: Soft, obese. Extremities: Moves all extremities. Neurologic: No changes. DIAGNOSTIC DATA: CBC normal. CMP essentially normal. ASSESSMENT AND PLAN: 1. Atrial fibrillation with rapid ventricular response. Dr. Cano saw him yesterday and added Toprol, although there has not really been much change on his heart rhythm. Unfortunately, his blood pressure is much lower today, so I certainly doubt that increasing Toprol is an option. We will continue on Xarelto. Certainly may need to consider other alternatives. He has been on amiodarone and digoxin, both of which have been discontinued in the last few days by Cardiology. 2. Systolic heart failure. His last chest x-ray demonstrated pulmonary edema. This will be repeated today. He has not had an echo as his heart rate has been too fast to accurately perform an echo. Although his heart rate was slower yesterday, we were unable to get an echo, because staff was busier at the other hospital. 3. Hypertension. Blood pressure is much lower after restarting Lopressor, although his heart rate has not been effected. Certainly may need to stop his Vasotec. At this point, we will decrease to 5 twice a day. 4. Sleep apnea. Patient notes that he would be unable to wear a CPAP at night. cc: Eliud Brooks MD
[2016-06-24] MEDS: XARELTO PO SCH (16:39)
[2016-06-24] MEDS: ROCEPHIN 1 GM/NS 1 GM/50 ML IVPB IV SCH (19:37)
--- NOTE | 2016-06-24 20:28 | PROGRESS NOTE ---
DATE: 06/24/2016 SUMMARY: Patient continues without dyspnea or chest discomfort on supplemental oxygen per nasal cannula. He is off intravenous Cardizem drip but heart rate has increased yet again. He was not able to tolerate BiPAP. OBJECTIVE: Vital Signs: Blood pressure 94/65, heart rate 91 and irregular with current ECG monitor showing heart rate ranging anywhere from 95 beats per minute to 125 beats per minute and showing atrial fibrillation. Neck: There is no significant jugular venous distention. Chest: Auscultation of chest reveals coarse breath sounds bilaterally. Cardiac Exam: Was an irregular rate and rhythm without appreciable murmur or gallop. There is no evidence of peripheral edema. DIAGNOSTIC STUDIES: Repeat limited echo with contrast pending. IMPRESSIONS: 1. Atrial fibrillation with re-emerging tendency for rapid ventricular rate despite current therapy. 2. Acute heart failure. Repeat echocardiography with contrast pending. 3. Chronic obstructive pulmonary disease with exacerbation. 4. Obstructive sleep apnea. 5. Coronary artery disease. 6. Hypertension. 7. Chronic cigarette use. 8. Chronic alcohol use. RECOMMENDATIONS: 1. Would increase metoprolol and reduce angiotensin converting enzyme inhibitor to facilitate increase. Beta-jose is probably the most ideal drug for controlling his heart rate. 2. Follow up limited echocardiography with contrast. 3. Again, would probably pursue rate control and anticoagulation in light of patient's age, comorbidities, and tendency for noncompliance. We will reconsider alternative antiarrhythmic therapy depending on results of repeat echocardiography. cc: Santhosh Cano MD MTDD
[2016-06-24] MEDS ORDERED: VASOTEC PO SCH (21:00)
[2016-06-24] MEDS ORDERED: LOPRESSOR PO ONE (23:30)
[2016-06-25] MEDS: SOLU-MEDROL IV SCH
[2016-06-25] MEDS: NS 1,000 ML IV SCH (04:43)
[2016-06-25 06:04] LABS: HEMATOCRIT 51.2 % (42.0-52.0); HEMOGLOBIN 16.3 g/dL (14.0-18.0); MCH 30.1 PG (27-31); MCHC 31.8 g/dL (33-37); MCV 94.5 FL (81-99); MPV 10.9 FL (7.4-10.4); RBC 5.42 XMIL (4.7-6.1)
[2016-06-25] MEDS: PROTONIX PO SCH (06:06)
[2016-06-25] MEDS: FLAGYL PO SCH ×3 (06:06→21:55)
[2016-06-25 06:21] LABS: AGAP 9; ALBUMIN 3.7 g/dL (3.5-5.0); ALKALINE PHOSPHATASE 52 U/L (32-122); BUN 27 mg/dL (8-22); CHLORIDE 100 mmol/L (98-107); COSMO 286; GOT 32 U/L (10-34); GPT 89 U/L (10-44); MAGNESIUM 2.5 mg/dL (1.5-2.7); POTASSIUM 4.7 mmol/L (3.5-5.1); SODIUM 139 mmol/L (136-145); TCO2 30 mmol/L (25-35); TOTAL PROTEIN 7.3 g/dL (6.3-8.3)
--- NOTE | 2016-06-25 07:16 | Diag Imaging Result Document ---
PROCEDURE NAME: CHEST-2 VIEWS - 06/24/2016 FRONTAL AND LATERAL CHEST, TWO VIEWS: COMPARISON: Compared to 06/21/2016. FINDINGS: The lungs are well expanded. The heart is smaller than on the prior exam. The vascular distension is less pronounced. No pleural effusions. No consolidation. No free air beneath the diaphragm. IMPRESSION: Overall interval improvement.
--- NOTE | 2016-06-25 08:42 | PROGRESS NOTE ---
DATE: 06/25/2016 SUBJECTIVE: The patient without any complaints. He notes that he is breathing is easier. He states that he slept a little bit better. PHYSICAL EXAMINATION: Vital Signs: Temperature 97.5 degrees, pulse 78 to 130, respiratory rate 13 to 16, blood pressure 108/80, saturation 90% to 95% on room air. General: The patient is awake, alert. He is currently in no respiratory distress. He appears to feel better this morning than he has in the last couple of days. HEENT: Normocephalic. Neck: Supple. Cardiovascular: Irregular rhythm, still poor control. Abdomen: Soft. Chest: Much more clear. No wheezing. Good air movement. Extremities: Moves all extremities well. DIAGNOSTIC DATA: CBC and CMP essentially normal. ASSESSMENT: 1. Atrial fibrillation with rapid ventricular response. Greatly appreciate Cardiology's input. His metoprolol was increased to 50 three times a day. This appears to be improving some of his heart rate control, although he is still having times where bounces into the 130s. Hopefully, an echocardiogram can be obtained today if his heart rate will stay low enough. 2. History of systolic congestive heart failure. Echocardiogram is still pending. 3. Chronic obstructive pulmonary disease, improving. We will wean down his steroids as well. He is currently off oxygen, breathing much better. 4. Hypertension. Blood pressure had been low. His angiotensin-converting enzyme inhibitor has been decreased to 0.5 since his Toprol has been increased. 5. Chronic tobacco abuse. Again, discussed with the patient the perils of smoking. cc: Eliud Brooks MD
[2016-06-25] MEDS: CARDIZEM CD PO SCH (08:43)
[2016-06-25] MEDS: ALDACTONE PO SCH (08:44)
[2016-06-25] MEDS: ASPIRIN PO SCH (08:44)
[2016-06-25] MEDS: LASIX IV SCH (08:44)
[2016-06-25] MEDS: LOPRESSOR PO SCH ×4 (08:44→20:07)
[2016-06-25] MEDS: DOXYCYCLINE PO SCH ×2 (08:44→20:07)
[2016-06-25] MEDS: PRINIVIL PO SCH (08:44)
[2016-06-25] MEDS ORDERED: LANOXIN IV ONE (08:46)
[2016-06-25] MEDS ORDERED: CARDIZEM PO ONE (10:53)
[2016-06-25] MEDS ORDERED: LOPRESSOR IV PRN (10:54)
[2016-06-25] MEDS ORDERED: LANOXIN IV SCH (13:00)
[2016-06-25] MEDS: CARDIZEM PO SCH ×2 (13:07→21:55)
[2016-06-25] MEDS: XARELTO PO SCH (16:56)
--- NOTE | 2016-06-25 17:07 | EKG Report ---
Test Performed on : 06/25/2016 3:55:49 PM Test Reason : a.fib protocol Blood Pressure : / mmHG Vent. Rate : 107 BPM Atrial Rate : 107 BPM P-R Int : 000 ms QRS Dur : 084 ms QT Int : 358 ms P-R-T Axes : 000 058 091 degrees QTc Int : 477 ms Atrial fibrillation. with rapid ventricular response. with premature ventricular or aberrantly condu cted complexes. Abnormal ECG When compared with ECG of 24-JUN-2016 10:20, (Unconfirmed) No significant change was found Confirmed by Abran Siddiqui MD ([id number]) on 06/27/2016 8:40:25 PM
--- NOTE | 2016-06-25 18:15 | ECHO REPORT ---
ORDER DATE: 06/23/2016 LIMITED ECHOCARDIOGRAPHY: SUMMARY: Limited echocardiography was performed utilizing intravenous echo contrast agent Definity for purposes of better determining patient's left ventricular ejection fraction and assessing wall motion. The study is technically difficult but adequate imaging is achieved through use of intravenous echo contrast agent Definity. Additionally the patient remains in atrial fibrillation with ventricular rate response variable but up to 120 beats per minute. The left ventricular ejection fraction appears to be approximately 50%. No wall motion abnormalities are appreciated. There is paradoxical motion of the septum often noted when patient demonstrates rapid or rapid response to atrial fibrillation. CONCLUSION: 1. Limited 2-dimensional echocardiography with echo contrast agent Definity administered. 2. Estimated left ventricular ejection fraction 50%. Intermittent paradoxical septal wall motion demonstrated in setting of variable R to R interval and atrial fibrillation with variable response. cc: Santhosh Cano MD
[2016-06-25] MEDS: ROCEPHIN 1 GM/NS 1 GM/50 ML IVPB IV SCH (20:06)
--- NOTE | 2016-06-26 01:29 | PROGRESS NOTE ---
DATE: 06/25/2016 SUBJECTIVE: Patient continues without dyspnea or chest discomfort on room air. He has continued in atrial fibrillation with difficult to control heart rate, although this seems to be coming under better control with further adjustments. OBJECTIVE: vital signs: Blood pressure 110/70, heart rate 110 to 140, with ECG monitor showing atrial fibrillation. There is no significant jugular venous distention appreciated. Chest: Clear to auscultation. Cardiac: Irregular rate and rhythm without appreciable murmur or gallop. LIMITED FOLLOWUP: Echocardiography performed using intravenous echo contrast agent Definity. Patient in atrial fibrillation with heart rate that ran in the 110 to 120 beats per minute at the time. This indicated a left ejection fraction 50%. There were some intermittent paradoxical septal wall motion during periods of increased heart rate with irregular R:R interval, probably related to aberrant conduction. IMPRESSION: 1. Atrial fibrillation with difficult to control ventricular response. Heart rate seems to be coming under better control with further adjustments. 2. Recent acute heart failure, improved with diuresis. 3. COPD with exacerbation. 4. Obstructive sleep apnea, poor tolerance of CPAP. 5. Chronic cigarette use, ongoing. 6. Atherosclerotic coronary disease. 7. Hypertension. 8. Chronic alcohol use. RECOMMENDATIONS: 1. Would utilize increased dose metoprolol and digoxin, as primary agents for rate control and supplement with diltiazem. 2. Continue anticoagulation. 3. Consider use of sotalol as antiarrhythmic agent. cc: Santhosh Cano MD
[2016-06-26] MEDS: FLAGYL PO SCH (05:42)
[2016-06-26] MEDS: CARDIZEM PO SCH ×2 (05:42→12:33)
[2016-06-26] MEDS: PROTONIX PO SCH (06:06)
[2016-06-26] MEDS: ALDACTONE PO SCH (08:23)
[2016-06-26] MEDS: LOPRESSOR PO SCH (08:24)
[2016-06-26] MEDS: PRINIVIL PO SCH (08:24)
[2016-06-26] MEDS: DOXYCYCLINE PO SCH (08:24)
[2016-06-26] MEDS: ASPIRIN PO SCH (08:24)
[2016-06-26] MEDS ORDERED: LANOXIN PO SCH (09:00)
[2016-06-26 11:29] VITALS: BP 95/65
--- NOTE | 2016-06-26 11:54 | EKG Report ---
Test Performed on : 06/26/2016 08:26:46 AM Test Reason : afib protocol Blood Pressure : / mmHG Vent. Rate : 086 BPM Atrial Rate : 107 BPM P-R Int : 000 ms QRS Dur : 086 ms QT Int : 364 ms P-R-T Axes : 000 063 091 degrees QTc Int : 435 ms Atrial fibrillation. Nonspecific T wave abnormality Abnormal ECG When compared with ECG of 25-JUN-2016 15:55, (Unconfirmed) Nonspecific T wave abnormality, worse in Anterolateral leads Confirmed by Abran Siddiqui MD ([id number]) on 06/27/2016 8:36:49 PM
--- NOTE | 2016-06-27 03:08 | DISCHARGE SUMMARY ---
ADMISSION DATE: 06/18/2016 DISCHARGE DATE: 06/26/2016 BU[employer]ER [employer]NSH[employer]: Dr. Lobato. ADMISSION DIAGNOSES: 1. Atrial fibrillation with rapid ventricular response. 2. Hypertension. 3. A questionable congestive heart failure. 4. Gastroesophageal reflux disease. DISCHARGE DIAGNOSES: 1. Atrial fibrillation with rapid ventricular response, now rate controlled. 2. History of systolic congestive heart failure. 3. Chronic obstructive pulmonary disease. 4. Hypertension. 5. Chronic tobacco abuse. SUMMARY OF FINDINGS: This is a 40-year-old male who is morbidly obese. Presents with progressive weakness and dyspnea on exertion for 3 weeks, coinciding with the time that he stopped taking his metoprolol for rate control. He continued to feel some palpitations and mild chest discomfort. He reported having significant dyspnea. When he arrived to the ER, he was found to be in atrial fibrillation, with RVR in the 130s to 170s. He is complaining of having severe shortness of breath. He is noted to continue smoking. He was admitted to the intensive care unit. Cardiology was consulted. He was diuresed with IV Lasix. Continued initially on IV Cardizem. Was started on Lovenox 1 mg/kg subcutaneous q.12 hours for DVT prophylaxis. They suspected obstructive sleep apnea, and recommended using a BiPAP at night, that he would need an outpatient sleep study once discharged. He was counseled on smoking cessation. He was weaned off of the IV Cardizem and placed on p.o. Cardizem. An echocardiogram obtained on 06/23/2016 showed it was used with the contrast agent Definity. Estimated ejection fraction at 50%. He was in atrial fibrillation, with a variable response. He has improved slowly every day, but now is tolerating all of his oral medications. Has ambulated around the nursing unit in ICU, and heart rate only got as high as 100. Cardiology saw him today, feels like that he can safely be discharged home today, to follow up with cardiology in 2 weeks. DISCHARGE MEDICATIONS: He was given prescriptions for the following medications: Aspirin 81 mg p.o. daily, #30, no refills. Digoxin 250 mcg p.o. daily, #30, with no refills. Cardizem 60 mg p.o. q.8 hours, #90, no refills. Lisinopril 2.5 mg p.o. daily, #30, no refills. Metoprolol 100 mg p.o. b.i.d., #60, no refills. Xarelto 20 mg p.o. with supper, #30, no refills. Aldactone 25 mg p.o. daily, #30, no refills. Protonix 40 mg p.o. daily, #30, with no refills. FOLLOWUP: Again, he will follow up with Dr. Lobato of cardiology in 2 weeks. Dictated by CRISTÓBAL Mi for Eliud Brooks MD cc: CRISTÓBAL Mi MD Ashish K. Basu, MD
== END 2016-06-26 12:33 | disposition home or self-care (01) ==
LOC: P.ED 07:43 → P.ICU 07:43 → SUATTDRO 14:35
PROVIDERS: ATTEND Family Medicine

== ENCOUNTER 2018-08-06 20:37 | Inpatient (IN) ==
[2018-08-06] MEDS ORDERED: ASPIRIN PO ONE (20:51)
[2018-08-06] MEDS ORDERED: CARDIZEM IV ONE ×2 (21:02→21:39)
[2018-08-06 21:15] LABS: BASO# 0.08 X1000 (0.0-0.2); BASO% 0.6 % (0.0-0.8); EOS% 1.4 % (0.0-10.0); HEMATOCRIT 36.8 % (42.0-52.0); HEMOGLOBIN 11.8 g/dL (14.0-18.0); IMM GRAN# 0.02 X1000 (0.0-0.04); IMM GRAN% 0.1 % (0.0-0.5); LYMPH# 2.54 X1000 (1.2-3.4); LYMPH% 18.4 % (20.5-51.1); MCH 28.7 PG (27-31); MCHC 32.1 g/dL (33-37); MCV 89.5 FL (81-99); MONO# 1.29 X1000 (0.11-0.59); MONO% 9.3 % (1.7-9.3); MPV 11.7 FL (7.4-10.4); NEUT# 9.68 X1000 (1.4-6.5); NEUT% 70.2 % (42.2-75.2); PLT 225 X1000 (130-400); RBC 4.11 XMIL (4.7-6.1); RDW 14.9 % (11.5-14.5); WBC 13.81 X1000 (4.8-10.8)
[2018-08-06 21:36] LABS: INR 1.33; PROTIME 17.1 Seconds (11.0-16.0)
[2018-08-06 21:44] LABS: AGAP 13; ALBUMIN 3.7 g/dL (3.5-5.0); ALKALINE PHOSPHATASE 83 U/L (32-122); BUN 16 mg/dL (8-22); CALCIUM 8.1 mg/dL (8.8-10.2); CHLORIDE 103 mmol/L (98-107); CK PROFILE 60 U/L (24-204); COSMO 275; CREATININE 0.8 mg/dL (0.7-1.2); ESTIMATED GFR > 60; GLUCOSE 99 mg/dL (70-104); GOT 20 U/L (10-34); GPT 18 U/L (10-44); POTASSIUM 4.2 mmol/L (3.5-5.1); SODIUM 137 mmol/L (136-145); TCO2 21 mmol/L (25-35); TOTAL PROTEIN 6.8 g/dL (6.3-8.3)
[2018-08-06] MEDS: CARDIZEM 125 MG/D5W 125 MG/125 ML IVPB IV SCH (22:35)
--- NOTE | 2018-08-06 23:43 | EKG Report ---
Test Performed on : 08/06/2018 8:49:16 PM Test Reason : cp Blood Pressure : / mmHG Vent. Rate : 116 BPM Atrial Rate : 326 BPM P-R Int : 000 ms QRS Dur : 080 ms QT Int : 368 ms P-R-T Axes : 000 083 114 degrees QTc Int : 511 ms Atrial flutter. with variable AV block. with premature ventricular or aberrantly conducted complexes. Nonspecific T wave abnormality Abnormal ECG When compared with ECG of 21-MAR-2017 20:57, Atrial flutter. has replaced Atrial fibrillation. Criteria for Inferior-posterior infarct are no longer present T wave inversion now evident in Lateral leads Unconfirmed Result
[2018-08-06] MEDS ORDERED: LASIX IV ONE (23:57)
--- NOTE | 2018-08-06 23:59 | PROVIDER DOCUMENTATION ---
This chart was entered by Glory Johnson Scribe, acting as scribe for Lorenza Carrera MD. HPI-Chest Pain - General Chief Complaint: Chest Pain Stated Complaint: chest pain Time Seen by Provider: 08/06/18 20:43 Source: patient Allergies/Adverse Reactions: Patient Allergies Allergy/AdvReac Type Severity Reaction Status Date / Time Iodinated Contrast- Oral and Allergy Severe ANAPHYLAXIS Verified 03/21/17 21:02 IV Dye [Iodinated Contrast Media - Oral and] Home Medications: Home Medication List Medication Instructions Recorded Confirmed Last Taken Type Aspirin 81 mg PO DAILY #30 chewtab 06/26/16 12/17/16 12/16/16 21:00 Rx Pantoprazole [Protonix] 40 mg PO DAILY #30 tablet 06/26/16 12/17/16 12/16/16 21:00 Rx Atorvastatin Calcium 80 mg PO DAILY 12/17/16 12/17/16 12/16/16 21:00 History LISINOpril [Prinivil] 5 mg PO DAILY 12/17/16 12/17/16 12/16/16 21:00 History Diltiazem C.d. [Cardizem Cd] 120 mg PO DAILY #30 capsule 12/21/16 Unknown Rx Rivaroxaban [Xarelto] 20 mg PO WSUPPER #30 tablet 12/21/16 Unknown Rx Sotalol [Betapace] 80 mg PO BID #60 tablet 12/21/16 Unknown Rx Spironolactone [Aldactone] 25 mg PO DAILY #30 tablet 12/21/16 Unknown Rx Ticagrelor [Brilinta] 90 mg PO BID #60 tablet 12/21/16 Unknown Rx Azithromycin [Zithromax Z-Elan] 250 mg PO DIRECTED #1 pkg 02/07/17 Unknown Rx Methylprednisolone [Medrol Dosepak] 4 mg PO DIRECTED #1 pkg 02/07/17 Unknown Rx Neomycin/Polymyxn/Hc Otic Susp 10 ml .SEE ORDER Q6H #1 bottle 02/07/17 Unknown Rx [Cortisporin Otic Susp] - History of Present Illness-CP Nature of Presenting Problem: pt is a 42 yr old male presenting with complaint of chest pain, heart racing/fluttering dyspnea with minimal exertion, no nausea or vomiting, pt presents via EMS, hx of RI and stents x 4 Location: reports: substernal Chest Pain Radiation: reports: no radiation Quality of Pain: reports: aching Severity in ED: severe Onset/Duration: this afternoon Timing: still present Context/Activities at Onset: reports: light activity Modifying Factors: improves with: exercise (minimal exertion worsens spymtoms) Associated Symptoms: denies: back pain, dizziness, fever/chills, nausea, shortness of breath, vomiting Nitro Today/Relief: no nitro taken today Aspirin Treatment Today: 325 mg x 1, provided by ED Prior Chest Pain/Cardiac Workup: reports: heart attack Similar Symptoms Previously?: Yes Recently Seen Here or By Another Healthcare Provider: No Review of Systems - Adult - REVIEW OF SYSTEMS - ADULT Constitutional: reports: lucia. denies: fever Eyes: denies: discharge, redness Ears, Nose, Mouth & Throat: denies: ear pain, sinus problem, throat pain Cardiovascular: reports: chest pain, irregular heart rate, palpitations. denies: syncope Respiratory: reports: dyspnea on exertion, shortness of breath. denies: wheezing Gastrointestinal: denies: nausea, vomiting Genitourinary: reports: no symptoms reported Musculoskeletal: denies: back pain, muscle aches, neck pain Integumentary: reports: no symptoms reported Neurological: denies: dizziness/vertigo, headache/migraines Psychiatric: reports: no symptoms reported Endocrine: reports: no symptoms reported Hematologic/Lymphatic: reports: no symptoms reported Allergic/Immunologic: reports: no symptoms reported All Other Systems: Reviewed and Negative Past History - Adult - PAST MEDICAL HISTORY-ADULT Review of Records: reports: Old Records Reviewed, Nursing Assessment Review, Medications Reviewed, Social history reviewed & non-contributory. Major Childhood Illnesses: reports: denies history Cardiovascular: reports: HTN Respiratory: reports: denies history Gastrointestinal: reports: denies history Obstetrical/Gynecological: reports: denies history Genitourinary: reports: denies history Musculoskeletal: reports: denies history Neurological: reports: denies history Psychiatric: reports: denies history Endocrine/Immune: reports: denies history Other Conditions: reports: denies history - PRIOR SURGERIES/PROCEDURES Surgical/Procedure History: reports: cardiac stent - IMMUNIZATION STATUS Childhood Immunizations: See Nurse Assessment Flu Vaccine: See Nurse Assessment - FAMILY HISTORY Family History: reviewed, not pertinent - SOCIAL HISTORY Smoking: cigarettes Provider spent 3-5 mins advising pt. on dangers of tobacco.: Discussed manners to quit use, and f/u contacts for add'l counseling. Substance Use: alcohol Alcohol Use Frequency: occasionally Living Situation: family Physical Exam-General - PHYSICAL EXAM-ADULT Initial Vital Signs Reviewed: Yes - CONSTITUTIONAL General Appearance: alert, no apparent distress, obese - EYES Eyes: PERRL/EOMI - HEAD, EARS, NOSE, MOUTH & THROAT HENMT: normocephalic/atraumatic, moist mucous membranes - NECK Neck: non-tender, full range of motion, supple, normal inspection - RESPIRATORY Respiratory: chest non-tender, lungs clear, normal breath sounds, no respiratory distress, no accessory muscle use - CARDIOVASCULAR Cardiovascular: normal peripheral pulses, tachycardia, irregularly irregular - GASTROINTESTINAL (ABDOMEN) Abdominal Exam: normal bowel sounds, non tender, soft - LYMPHATIC Lymphatic: no adenopathy - MUSCULOSKELETAL Back Exam: normal inspection, no CVA tenderness, no vertebral tenderness Extremity: normal range of motion, non-tender, normal gait, normal inspection - SKIN Integumentary: normal color, normal turgor, warm/dry - NEUROLOGIC Neurologic: grossly normal - PSYCHIATRIC Psych/Mental Status: normal mood/affect Progress - PLAN OF CARE/RESULTS Progress/Plan/Lab Results: Vital Signs - 8 hr 08/06/18 20:40 08/06/18 21:49 08/06/18 22:38 Pulse Rate 120 H 127 H 135 H Respiratory Rate 18 16 20 Blood Pressure 88/67 108/83 105/81 O2 Sat by Pulse Oximetry 95 93 L 08/06/18 23:32 Pulse Rate 99 H Respiratory Rate 24 Blood Pressure 123/97 O2 Sat by Pulse Oximetry 94 L Laboratory Results - last 24 hr 08/06/18 08/06/18 08/06/18 21:02 21:02 21:02 WBC 13.81 H RBC 4.11 L Hgb 11.8 L Hct 36.8 L MCV 89.5 MCH 28.7 MCHC 32.1 L RDW Std Deviation 14.9 H Plt Count 225 MPV 11.7 H Immature Gran % (Auto) 0.1 Neut % (Auto) 70.2 Lymph % (Auto) 18.4 L [place] % (Auto) 9.3 Eos % (Auto) 1.4 Baso % (Auto) 0.6 Immature Gran # (Auto) 0.02 Neut # (Auto) 9.68 H Lymph # (Auto) 2.54 [place] # (Auto) 1.29 H Eos # (Auto) 0.20 Baso # (Auto) 0.08 PT INR PTT (Actin FS) Sodium 137 Potassium 4.2 Chloride 103 Carbon Dioxide 21 L Anion Gap 13 BUN 16 Creatinine 0.8 Estimated GFR/1.73 m2 > 60 BUN/Creatinine Ratio 20 Glucose 99 Calculated Osmolality 275 Calcium 8.1 L Total Bilirubin 1.20 H AST 20 ALT 18 Alkaline Phosphatase 83 Creatine Kinase 60 Troponin T Lur-Y-Ogvzlegheil Pept 4079 H Total Protein 6.8 Albumin 3.7 Globulin 3.0 Albumin/Globulin Ratio 1.0 08/06/18 08/06/18 21:02 21:02 WBC RBC Hgb Hct MCV MCH MCHC RDW Std Deviation Plt Count MPV Immature Gran % (Auto) Neut % (Auto) Lymph % (Auto) [place] % (Auto) Eos % (Auto) Baso % (Auto) Immature Gran # (Auto) Neut # (Auto) Lymph # (Auto) [place] # (Auto) Eos # (Auto) Baso # (Auto) PT 17.1 H INR 1.33 PTT (Actin FS) 33.0 Sodium Potassium Chloride Carbon Dioxide Anion Gap BUN Creatinine Estimated GFR/1.73 m2 BUN/Creatinine Ratio Glucose Calculated Osmolality Calcium Total Bilirubin AST ALT Alkaline Phosphatase Creatine Kinase Troponin T < 0.010 Zdo-O-Azphjtkynmz Pept Total Protein Albumin Globulin Albumin/Globulin Ratio Orders Category Date Time Status Cardiac Monitoring DIRECTED Care 08/06/18 20:51 Active Oxygen Therapy- ED Nursing DIRECTED Care 08/06/18 20:51 Active Saline Loc NOW Care 08/06/18 20:51 Active CHEST-2 VIEWS [RAD] Stat Exams 08/06/18 20:51 Taken CBC WITH ELECTRONIC DIFF [HEME] Stat Lab 08/06/18 21:02 Completed CK PROFILE [SP CHEM] Stat Lab 08/06/18 21:02 Completed COMPREHENSIVE METABOLIC PANEL [CHEM] Stat Lab 08/06/18 21:02 Completed PRO B-NATRIURETIC PEPTIDE Stat Lab 08/06/18 21:02 Completed PROTIME WITH INR [COAG] Stat Lab 08/06/18 21:02 Completed PTT [COAG] Stat Lab 08/06/18 21:02 Completed TROPONIN T Stat Lab 08/06/18 21:02 Completed Aspirin Med 08/06/18 20:51 Discontinued 325 mg PO NOW ONE Diltiazem 125 mg/D5w [Cardizem 125 mg/D5w] Med 08/06/18 22:15 Active 125 mg in 125 ml IV As Directed mls/hr Diltiazem [Cardizem] Med 08/06/18 21:02 Discontinued 10 mg IV NOW ONE Diltiazem [Cardizem] Med 08/06/18 21:39 Discontinued 10 mg IV NOW ONE CP/SOB/Palp >45 yrs of Age Stat Oth 08/06/18 20:51 Ordered EKG [EKG] Stat Ther 08/06/18 20:51 Draft Result Diagrams: 08/06/18 21:02 08/06/18 21:02 - EKG 1 Time of EKG reading by physician:: 20:51 EKG Read and Signed by:: Lorenza Carrera EKG Interpretation (*Must complete 3 of following elements*): Abnormal (non specific t wave abnormality) Rate: 116 Rhythm: a flutter with vairable AV block and PVCs [place]: normal QRS: PVC's VA Interval: normal - CONSULTS/PCP/HOSPITALIST Notification #1 *Consult/PCP/Hospitalist*: Dr. Ny Time Discussed: 23:59 Consult Disposition: other (patient accepted [facility] [place] [facility] Departure - Departure Date of Disposition Decision: 08/06/18 Time of Disposition Decision: 23:55 DIAGNOSIS: Atrial fibrillation with rapid ventricular response Disposition: ADMITTED INPATIENT 09 Certified Medical Emergency: Emergent Condition: Stable Referrals and Follow-Ups: None,PCP [Primary Care Provider] - - Critical Care Note This patient required my direct & personal management of CC.: Yes Total Time (mins): 30 Critical Care Statement: This patient required my direct personal management to treat or rule out processes, the absence of which, could potentiallly result in sudden, clinically significant life or limb threatening deterioration. Attestation - Physician/ GAGAN Attestation Patient care was provided by Advanced Practice Provider:: No The physician spent face to face time with patient:: Yes Advanced Practice Provider documentation review:: Supervising physician onsite and consulted in the evaluation and care of this patient. The physician did have a face to face encounter with the patient. This chart was documented by the indicated scribe, (Glory Johnson Scribe) and accurately reflects the services I performed and decisions made by me, Lorenza Carrera MD, as attested by the provider's signature.
[2018-08-07] MEDS ORDERED: NS 1,000 ML ONE (00:13)
[2018-08-07] MEDS: CARDIZEM 125 MG/D5W 125 MG/125 ML IVPB IV SCH (00:18)
[2018-08-07] MEDS ORDERED: DUONEB (A & A) INH PRN (02:28)
[2018-08-07] MEDS ORDERED: CARDIZEM 125 MG/D5W 125 MG/125 ML IVPB IV SCH (02:45)
--- NOTE | 2018-08-07 03:29 | HISTORY AND PHYSICAL ---
PRIMARY CARE PHYSICIAN: None. CHIEF COMPLAINT: Shortness of breath x4 days, heart racing. HISTORY OF PRESENTING ILLNESS: The patient is a 42-year-old male with a history of atrial fibrillation, hypertension, coronary disease and hyperlipidemia who had presented to the emergency department with 4 days history of worsening shortness of breath and heart racing. He was initially seen at [facility] where he was found to be in atrial fibrillation with rapid ventricular response. He was started on IV Cardizem and his case was discussed with Cardiology, who recommended the patient be transferred to [facility] for further evaluation and management. At the time of my examination the patient denied any headache, fever, chills, chest pain, hemoptysis, melena or weight changes, but complained of shortness of breath, heart racing, and not feeling well. The patient also stated that he was nauseated and vomited several times. PAST MEDICAL HISTORY: Includes atrial fibrillation, hypertension, hyperlipidemia, coronary disease, COPD. PAST SURGICAL HISTORY: Coronary stent, right ear surgery, umbilical hernia repair. ALLERGIES: To IV contrast. CURRENT MEDICATIONS: Include aspirin 81 mg p.o. daily, atorvastatin 80 mg p.o. daily, lisinopril 5 mg p.o. daily, pantoprazole 40 mg p.o. daily, Xarelto 20 mg p.o. daily, sotalol 80 mg p.o. daily, spironolactone 25 mg p.o. daily, Brilinta 90 mg p.o. daily, diltiazem CD 120 mg p.o. daily. SOCIAL HISTORY: Thirty plus pack years history of smoking. Admits to social alcohol use. Denies any illicit drug use. FAMILY HISTORY: Positive for coronary disease in mother. REVIEW OF SYSTEM: Fourteen point review of system as listed in the HPI. Other systems negative. PHYSICAL EXAMINATION: GENERAL: A cooperative friendly male. He is resting more comfortably now. VITAL SIGNS: Temperature 97.5 degrees, pulse 106, respirations 19, blood pressure 98/84. HEENT: Atraumatic and normocephalic. Extraocular movements intact. PERRLA. NECK: No masses. CHEST: Rhonchi. CARDIOVASCULAR: Irregular. ABDOMEN: Soft. Positive bowel sounds. EXTREMITIES: No edema. NEUROLOGIC: He is awake, alert and oriented x3. GENITOURINARY: No bladder distention. SKIN: Warm. LABORATORIES AND STUDIES: WBC is 13.81, hemoglobin 11.8, hematocrit 36.8, platelets 225,000. Sodium 137, potassium 4.2, chloride 103, CO2 is 21, BUN is 16, creatinine 0.8, glucose is 99. ProBNP is 4079. Troponin is 0.010. Chest x-ray shows vascular congestion. ASSESSMENT: This is a 42-year-old male with a history of atrial fibrillation, hypertension, hyperlipidemia and coronary disease who had presented to the emergency department with 4 days history of progressive worsening shortness of breath. He was found to be initially in atrial fibrillation with rapid ventricular response at [facility] and started on intravenous Cardizem. He was transferred to [facility] for further evaluation and management. 1. Atrial fibrillation with rapid ventricular response. 2. Suspected congestive heart failure unspecified. 3. Chronic obstructive pulmonary disease/bronchitis. 4. Coronary artery disease. 5. Hypertension. 6. Ongoing tobacco abuse. PLAN: 1. The patient will be admitted to [facility]. 2. We will continue with Cardizem drip. 3. We will place the patient on supplemental oxygen. 4. We will continue with gentle diuresis. 5. We will consult Cardiology. 6. We will continue with DuoNeb as needed and intravenous Solu-Medrol. 7. We will continue to monitor the patient on telemetry. 8. We will monitor blood pressure closely. 9. The patient is already on Xarelto and this will suffice for DVT prophylaxis. 10. We will continue to follow, reassess and make further recommendation based on the patient's clinical course. cc: Duglas Ny MD MTDD
[2018-08-07] MEDS: LASIX IV SCH ×2 (04:34→15:38)
[2018-08-07] MEDS: SOLU-MEDROL IV SCH ×3 (04:34→20:02)
--- NOTE | 2018-08-07 07:23 | Diag Imaging Result Doc PS360 ---
EXAM: CHEST-2 VIEWS 08/06/2018 HISTORY: cp TECHNIQUE: PA and lateral chest COMMENT: There is increased interstitial opacity bilaterally which is most notable in the left upper lobe in comparison with 03/21/2017. The heart size is enlarged. IMPRESSION: Cardiomegaly and pulmonary edema. Electronically signed by Kun Castro 08/07/2018 7:20 AM
[2018-08-07] MEDS: MUCINEX PO SCH ×2 (08:35→20:02)
--- NOTE | 2018-08-07 09:57 | EKG Report ---
Test Performed on : 08/07/2018 09:33:36 AM Test Reason : afib Blood Pressure : / mmHG Vent. Rate : 091 BPM Atrial Rate : 319 BPM P-R Int : 000 ms QRS Dur : 088 ms QT Int : 442 ms P-R-T Axes : 000 089 129 degrees QTc Int : 543 ms Atrial flutter. with variable AV block. with premature ventricular or aberrantly conducted complexes. T wave abnormality, consider lateral ischemia Prolonged QT Abnormal ECG When compared with ECG of 06-AUG-2018 20:49, (Unconfirmed) No significant change was found Confirmed by Jean BOSCH, Thomas Bang ([id number]) on 08/08/2018 11:59:52 AM
[2018-08-07] MEDS ORDERED: CARDIZEM 125 MG in D5W 100 ML IV SCH (10:05)
[2018-08-07] MEDS ORDERED: LASIX IV ONE (10:10)
[2018-08-07] MEDS ORDERED: TOPROL XL PO SCH (10:30)
[2018-08-07] MEDS: BETAPACE PO SCH ×2 (10:52→20:02)
[2018-08-07] MEDS: LOVENOX SUBQ SCH ×2 (10:52→21:39)
[2018-08-07] MEDS: ASPIRIN PO SCH (10:52)
--- NOTE | 2018-08-07 11:09 | CARDIOLOGY CONSULTATION ---
DATE: 08/07/2018 HISTORY OF PRESENT ILLNESS: Mr. Johnson is a 42-year-old, gentleman with history of atrial flutter/fibrillation, hypertension, coronary artery disease, stent placement in the past. He comes in with complaints of increasing shortness of breath over the last for 4 days to a week. He had been working in [place], came in, was noted to be in congestive heart failure, atrial fibrillation, admitted to the hospital, started on a Cardizem drip. He has a complicated cardiac history. He says he has not been taking any of his medications over the last couple of weeks. He stated whenever he took his medications, he felt weak so he stopped taking all his medications. He denies chest pain. His main problems have been with shortness of breath. He is currently orthopneic. There are no palpitations. There is no nettie syncopal episode; however he has felt dizzy. HOME MEDICATIONS: Listed which he was supposed to have been taking include aspirin 81 mg a day, atorvastatin 80, lisinopril 5, Protonix 40, Xarelto 20, sotalol 80 mg b.i.d., spironolactone 25, Brilinta and Cardizem CD. SOCIAL HISTORY: He has a 30 pack-year history of smoking. Admits to social alcohol drinking but no illicit drug abuse. FAMILY HISTORY: He has strong family history of coronary artery disease with his mother having had coronary artery disease. ALLERGIES: he is allergic to IV contrast. PAST MEDICAL HISTORY: 1. The patient has had coronary artery disease with myocardial infarction in the past. In 2016, patient had anaphylaxis with contrast-induced, this was while he underwent a PTCA with a drug- eluting stent to the mid left anterior descending artery. Subsequently, he had PTCA stent placement and drug-eluting stent to the right coronary artery. On 12/02/2016, the patient had elective left heart catheterization, had successful percutaneous coronary angioplasty with a long stent placement to the proximal right coronary artery which resulted in dissection and which extended to the mid right coronary artery, after which another stent was placed. He has been on aspirin and Brilinta. 2. The patient has atrial flutter/fibrillation. He was admitted on multiple occasions, underwent cardioversion which was successful in 2017. However, he was still in atrial flutter. He had cardioversion which was unsuccessful, this was in 2017 at [place]. He was to have been followed up with Electrophysiology, Dr. Dimas. However, he had not shown up for his appointments and ablations were contemplated at that time. 3. Ischemic cardiomyopathy. 4. Hypertension. 5. Tobacco abuse. 6. Family history of coronary artery disease, mother having coronary artery bypass grafting at the age of 43. 7. Morbid obesity. 8. Sleep apnea. 9. Last cardiac catheterization 12/02/2016, left main distal had 30% stenosis, LAD mid 50%, circumflex long tubular 80 to 90 percent with mid to distal portion stenosis. Upper OM1 was small. Mid OM was insignificant. RCA 100% proximal with some collaterals. Patient had PTCA stent placement at that time, ejection fraction was 25%. Last ejection fraction 12/12/2017 was 30 to 35 percent. PHYSICAL EXAMINATION: Vital signs: Blood pressure was 95/65. Cardiovascular: First and second heart sounds were heard. There was a soft systolic murmur. Respiratory system: Examination revealed bibasilar inspiratory crepitations. Oxygen saturations on 2 L oxygen was 96%. Abdomen: Soft, nontender. There was no guarding or rigidity. Bowel sounds were heard. Central nervous system: Alert, was moving all 4 extremities. Extremities: Mild pedal edema. HEENT: Atraumatic, normocephalic. Pupils were equal and reacting to light. LABORATORY EXAMINATION: 1. Revealed sodium 137, potassium 4.2, BUN 16, creatinine 0.8. Two sets of cardiac enzymes were negative. ProBNP elevated at 4079. 2. WBC 13.81, hemoglobin 11.8, hematocrit 36, platelet count of 225,000. ASSESSMENT AND PLAN: 1. Mr. Umesh Johnson is a 42-year-old, gentleman with history of myocardial infarction, multiple coronary interventions in the past, atrial flutter/fibrillation with multiple cardioversions with unsuccessful cardioversion in the past. 2. Hypertension, sleep apnea. Has been noncompliant with his medications and has not been taking his medications for at least 2 weeks. Patient comes to the hospital in orthopnea, he is in congestive heart failure. So far, his cardiac enzymes are negative. PLAN: 1. He is orthopneic. We will give him Lasix 40 mg IV now and then continue with 40 mg IV twice daily. 2. He is in atrial flutter. He has failed cardioversion and he did not show up for his follow-up for contemplated ablation. However, he has been noncompliant with his medications as well. He was supposed to be on sotalol 80 mg twice daily. We will restart that. 3. He has severe left ventricular dysfunction. He had been taking lisinopril. We will restart him on HEATH inhibitors when his blood pressure is stable. His blood pressure is low, I suspect because of the Cardizem drip which he is on. We will discontinue the Cardizem drip. 4. As far as anticoagulation is concerned, we will continue with the aspirin. We will hold his Eliquis which he had not been taking in addition to Brilinta which he has not been taking. We will put him on Lovenox 1 mg/kg subcutaneous twice daily. 5. Patient has aggressive significant coronary artery disease with multiple coronary interventions. Given his congestive heart failure, even though his cardiac enzymes are negative, I made plan to set him up for a left heart catheterization when he is euvolemic to assess for his coronary status at the present time. We will plan for left heart catheterization and we will premedicate him prior to his left heart catheterization. 6. We will get a chest x-ray in the morning. We will get an echocardiogram to assess cardiac and valvular function. cc: Kenny Lobato MD
--- NOTE | 2018-08-07 15:17 | PROGRESS NOTE ---
DATE: 08/07/2018 BRIEF PROGRESS NOTE: INTERVAL HISTORY: The patient still with some orthopnea, mild dyspnea, but much improved from admission. Remains in atrial fibrillation with rate controlled this morning on diltiazem drip. Cardiology consulted. They plan on aggressive diuresis and possible left heart catheterization given extensive coronary artery disease on previous catheterization and what appears to likely be worsening heart failure. The patient's last EF was borderline 45-50%. Suspect it is worsened now as he is far more symptomatic and BNP is significantly more elevated than in the past. 4000 here and has been in generally around 300 in the past. Bilirubin minimally elevated without any other LFT elevation. Will recheck in the morning. May be mild passive congestion or lab error. Cardiology is planning on changing cardizem drip to p.o. medications as I believe this may be affecting his blood pressure. Continue monitoring closely. Troponins negative thus far. MTDKathy
[2018-08-07] MEDS ORDERED: LIPITOR PO SCH (21:00)
--- NOTE | 2018-08-07 22:46 | ECHO REPORT ---
ORDER DATE: 08/07/2018 MEASUREMENTS: 1. Septal thickness 0.9. 2. Left ventricular internal diameter diastole 5.6. 3. Aortic root 3.1. 4. Left atrium 4.2. SUMMARY: 1. Technically difficult study due to limited acoustic window quality. Intravenous echo contrast agent. Optison was utilized to enhance endocardial definition. 2. Aortic valve is trileaflet and opens normally on 2-dimensional images. Peak gradient across the valve is less than 10 mmHg. Mitral and tricuspid valves are without evidence of structural abnormality while pulmonic valve is not well demonstrated. There is mild to moderate mitral regurgitation and mild tricuspid regurgitation. The estimated systolic PA pressure by Doppler is 40 mmHg suggesting mild pulmonary hypertension. The aortic root is normal size. 3. Borderline left ventricular enlargement with normal wall thickness demonstrated. Estimated left ejection fraction approximately 30% the setting of global hypokinesis. Left atrium is mildly enlarged. Right atrium right ventricle are normal in size with normal right ventricular systolic function. 4. No pericardial effusion. 5. Appearance of inferior vena cava suggests normal central venous pressure. CONCLUSIONS: 1. Technically difficult study. 2. Mild to moderate mitral regurgitation. 3. Mild tricuspid regurgitation with mild pulmonary hypertension by Doppler. 4. Borderline left ventricular enlargement with estimated left ejection fraction approximately 30%. 5. Mild left atrial enlargement. cc: Santhosh Cano MD
[2018-08-08] MEDS ORDERED: LANOXIN IV ONE (02:56)
[2018-08-08] MEDS: SOLU-MEDROL IV SCH ×2 (03:12→11:37)
[2018-08-08] MEDS: LASIX IV SCH ×2 (03:13→16:12)
[2018-08-08] MEDS ORDERED: MORPHINE IV ONE (04:57)
[2018-08-08] MEDS: BETAPACE PO SCH (06:48)
[2018-08-08 06:59] LABS: BASO% 0.1 % (0.0-0.8); HEMATOCRIT 41.4 % (42.0-52.0); IMM GRAN% 0.4 % (0.0-0.5); LYMPH% 7.2 % (20.5-51.1); MCH 28.1 PG (27-31); MCHC 31.4 g/dL (33-37); MCV 89.4 FL (81-99); MONO% 4.1 % (1.7-9.3); MPV 12.2 FL (7.4-10.4); NEUT# 14.82 X1000 (1.4-6.5); NEUT% 88.2 % (42.2-75.2); PLT 246 X1000 (130-400); RBC 4.63 XMIL (4.7-6.1); RDW 15.1 % (11.5-14.5); WBC 16.79 X1000 (4.8-10.8)
--- NOTE | 2018-08-08 06:59 | EKG Report ---
Test Performed on : 08/08/2018 06:23:56 AM Test Reason : dyspnea Blood Pressure : / mmHG Vent. Rate : 142 BPM Atrial Rate : 166 BPM P-R Int : 000 ms QRS Dur : 086 ms QT Int : 332 ms P-R-T Axes : 000 089 114 degrees QTc Int : 510 ms Atrial fibrillation. with rapid ventricular response. with premature ventricular or aberrantly conduc blaine complexes. Nonspecific ST and T wave abnormality Abnormal ECG When compared with ECG of 07-AUG-2018 09:33, (Unconfirmed) Atrial fibrillation. has replaced Atrial flutter. Vent. rate has increased BY 51 BPM Nonspecific T wave abnormality has replaced inverted T waves in Lateral leads Confirmed by Jean BOSCH, Thomas Bang ([id number]) on 08/08/2018 12:00:46 PM
[2018-08-08 07:00] LABS: BASO# 0.01 X1000 (0.0-0.2); IMM GRAN# 0.06 X1000 (0.0-0.04); LYMPH# 1.21 X1000 (1.2-3.4); MONO# 0.69 X1000 (0.11-0.59)
--- NOTE | 2018-08-08 07:12 | Diag Imaging Result Doc PS360 ---
EXAM: CHEST-PORTABLE 08/08/2018 HISTORY: dyspnea TECHNIQUE: AP portable at 0539 COMMENT: There is slightly worsened pulmonary edema compared to 08/06/2018. There is cardiomegaly. IMPRESSION: Pulmonary edema. Electronically signed by Kun Castro 08/08/2018 7:09 AM
[2018-08-08 07:36] LABS: AGAP 10; BUN 26 mg/dL (8-22); CHLORIDE 101 mmol/L (98-107); COSMO 279; CREATININE 0.9 mg/dL (0.7-1.2); ESTIMATED GFR > 60; GLUCOSE 132 mg/dL (70-104); POTASSIUM 4.1 mmol/L (3.5-5.1); SODIUM 136 mmol/L (136-145); TCO2 25 mmol/L (25-35)
[2018-08-08] MEDS: ASPIRIN PO SCH ×2 (07:57→11:28)
[2018-08-08] MEDS: MUCINEX PO SCH ×2 (07:57→11:28)
[2018-08-08] MEDS: PROTONIX PO SCH ×2 (07:58→11:28)
[2018-08-08] MEDS ORDERED: LANOXIN PO SCH (09:00)
[2018-08-08] MEDS ORDERED: CORDARONE 360 MG/D5W 360 MG/200 ML IV.SOLN IV ONE (10:56)
[2018-08-08] MEDS ORDERED: CORDARONE 150 MG/D5W 150 MG/100 ML IV.SOLN IV ONE (10:56)
[2018-08-08] MEDS ORDERED: TOPROL XL PO SCH (11:00)
[2018-08-08] MEDS: LOVENOX SUBQ SCH (11:53)
[2018-08-08 16:23] VITALS: BP 117/83
[2018-08-08] MEDS ORDERED: CORDARONE 540 MG in D5W 289.2 ML IV ONE (16:56)
--- NOTE | 2018-08-08 17:27 | PROGRESS NOTE ---
DATE: 08/08/2018 . INTERVAL HISTORY: The patient reports improved dyspnea. Still complaining of dyspnea and also additionally some chest pain with exertion today. He had some elevation in his heart rate this morning, but was improved at the time of my exam. No other acute events overnight. No other new complaints. REVIEW OF SYSTEMS: Twelve point review of systems negative except as per interval history. LABORATORY DATA: WBC 16.7, hemoglobin 13, hematocrit 41.4, platelets 246,000. Sodium 136, potassium 4.1, bicarbonate 25, BUN 26, creatinine 0.9, glucose 132. TSH 0.55. Troponins negative x3. IMAGING: Echocardiogram somewhat technically difficult, but appears to have significantly decreased EF at 30. Mild to moderate mitral and tricuspid regurgitation. Mild pulmonary hypertension. Left atrial enlargement. Chest x-ray with pulmonary edema, possibly slightly worse. VITAL SIGNS: T-max 98.1 degrees, pulse 101, respirations 16, blood pressure 116/91, O2 saturation 98% on 3 L by nasal cannula. PHYSICAL EXAMINATION: General: No acute distress. Vital Signs: As above. HEENT: Normocephalic, atraumatic. Moist mucous membranes. No cervical adenopathy. Cardiovascular: Irregular rhythm, slightly tachycardic. No rubs noted. Pulmonary: Bibasilar rales noted. Otherwise largely clear to auscultation. Abdomen: Soft, nontender, nondistended. Bowel sounds positive. Extremities: Peripheral pulses intact. Trace to 1+ pitting edema bilaterally in bilateral lower extremities. Neurologic: Cranial nerves grossly intact. No focal deficits. Psychiatric: Normal mood and affect. Awake, alert, oriented x3. Skin: No new rashes or identified next plan. ASSESSMENT/PLAN: 1. Atrial fibrillation with rapid ventricular response. Controlled on diltiazem initially. Off Diltiazem overnight and this morning. Did have significant elevation in heart rate this morning, but improved now. Started on amiodarone for this. Cardiac following. Continue to monitor. 2. Acute on chronic systolic congestive heart failure. Patient with borderline EF on my study a couple years ago. EF down to 30, now, likely slow worsening. He has known significant coronary artery disease and will likely need repeat heart catheterization in the near future if possible given his dye allergy. 3. He does have some pulmonary edema on x-ray. X-ray actually reveals slightly worse but clinically appears slightly better with less dyspnea. He definitely appears more comfortable. Continue IV b.i.d. Lasix and monitor closely. We start beta jose and ARB in the morning. 4. Coronary artery disease. Continue aspirin and statin and monitor. 5. Chronic obstructive pulmonary disease. No wheezing. Pretty good air entry, so no sign of exacerbation at this time. Continue to monitor. 6. Hypertension. Blood pressure low to normal. We will continue congestive heart failure medications but add no additional antihypertensive agents. 7. Tobacco abuse. Patient strongly counseled on cessation. Offered a nicotine patch. 8. Hyperlipidemia. Continue statin. 9. Gastroesophageal reflux disease. Continue proton pump inhibitors.
--- NOTE | 2018-08-09 03:55 | DISCHARGE SUMMARY ---
ADMISSION DATE: 08/06/2018 DISCHARGE DATE: 08/08/2018 CONSULTS: Cardiology, Dr. Lobato. DISCHARGE DIAGNOSES: 1. Atrial fibrillation with rapid ventricular response. 2. Acute on chronic systolic congestive heart failure, ejection fraction 30. 3. Coronary artery disease. 4. Chronic obstructive pulmonary disease without exacerbation. 5. Hypertension. 6. Tobacco use. 7. Hyperlipidemia. 8. Gastroesophageal reflux disease. HOSPITAL COURSE: Patient is a 42-year-old male with history of COPD, coronary artery disease. He presented with orthopnea, dyspnea and was found to be in atrial fibrillation with RVR with elevated BNP. Suspected to have worsening heart failure. The patient's previous EF was borderline 45 to 50. Repeat echo here showing EF approximately 30%. He was controlled initially on diltiazem, but had some mild hypotension so this was discontinued. He tolerated this eventually, but then went back into atrial fibrillation with rapid ventricular response. Amiodarone drip was started with some improvement, but continued to have difficult to control atrial fibrillation. Left heart catheterization was considered, but because of a variety of factors including patient's allergy to CT dye Cardiology recommended that he be transferred to [place] for further evaluation. Patient's troponins were negative. BNP was approximately 4000. It has been mostly around 300 in the past. He had a white count with WBC 16.7, mild anemia, hemoglobin 13. Lab work was otherwise largely unremarkable. DISCHARGE VITALS: Temperature 97.6 degrees, heart rate 114, respirations 17, blood pressure 117/83, O2 saturation 100% on room. DISCHARGE DIET: Cardiac. DISCHARGE MEDICATIONS: Atorvastatin 80 mg p.o. daily, lisinopril 5 mg p.o. daily, aspirin 81 mg p.o. daily, Brilinta 90 mg p.o. b.i.d., Protonix 40 mg p.o. daily and Xarelto 20 mg p.o. at bedtime. Other current home medications are on hold including spironolactone 25 daily, sotalol 80 mg p.o. b.i.d., diltiazem CD 120 mg p.o. daily. On amiodarone drip. FOLLOWUP AND PLAN: Patient transferring to [facility] for further evaluation by Cardiology and Cardiothoracic Surgery. May need bypass. TIME: Greater than 30 minutes spent arranging discharge.
[2018-08-09] MEDS ORDERED: COZAAR PO SCH (09:00)
== END 2018-08-08 16:55 | disposition short-term general hospital (02) | DRG 308 ==
LOC: P.ED 20:37 → SUATTDRO 20:38 → 3S 08-07 00:52
PROVIDERS: ATTEND Internal Medicine
CPT/HCPCS: 71010; 71020; 71045; 71046; 80048; 80053; 82550; 83735; 83880; 84443; 84484; 85025; 85610; 85730; 93005; 93010; 93306; 94640; 94761; 96365; 96366; 96375; 99285; 99291; A9270; C8929; J0282; J1160; J1650; J1940; J2270; J2930; J7030; J7060; Q9957